=== PATIENT | male | born 1940 | race Caucasian/White ===

== ENCOUNTER 2021-11-07 10:07 | Inpatient (IN) | payer MEDICARE, BC ==
[2021-11-07] MEDS ORDERED: IBUPROFEN 600 MG TAB PO STA (10:12)
[2021-11-07] MEDS ORDERED: ACETAMINOPHEN TAB 500 MG TAB PO STA (10:12)
--- NOTE | 2021-11-07 10:16 | ED ---
General Adult HPI - General Stated complaint: Leg weakness Time Seen by Provider: 11/07/21 10:10 Source: patient, RN notes reviewed, old records reviewed - History of Present Illness Initial comments: This is an 81-year-old male who states about a week ago he was diagnosed with COVID. Patient states he got up today and his legs were really weak and he was having difficulty standing thought he might fall so he came to the emergency department. Patient states he did not take any of his morning medications. Patient states he did not take any Tylenol or Motrin. Patient states he has had a cough but no difficulty breathing or shortness of breath. Patient denies any chest pain or abdominal pain patient denies any headache patient denies any numbness or focal weakness. Patient denies any nausea vomiting or diarrhea. Ward lai denies any recent injury or trauma. - Related Data Home Medications Medication Instructions Recorded Confirmed Glimepiride [Amaryl] 2 mg PO AC-BRKFST 11/07/21 11/07/21 Lovastatin [Mevacor] 40 mg PO HS 11/07/21 11/07/21 lisinopriL 40 mg PO DAILY 11/07/21 11/07/21 metFORMIN HCL 1,000 mg PO AC-BID 11/07/21 11/07/21 Allergies Allergy/AdvReac Type Severity Reaction Status Date / Time No Known Allergies Allergy Verified 11/07/21 10:16 Review of Systems ROS Statement: Those systems with pertinent positive or pertinent negative responses have been documented in the HPI. ROS Other: All systems not noted in ROS Statement are negative. General Exam - General Exam Comments Initial Comments: GENERAL: Patient is well-developed and well-nourished. Patient is nontoxic and well-hydrated and is in mild distress. ENT: Neck is soft and supple. No significant lymphadenopathy is noted. Oropharynx is clear. Moist mucous membranes. Neck has full range of motion without eliciting any pain. EYES: The sclera were anicteric and conjunctiva were pink and moist. Extraocular movements were intact and pupils were equal round and reactive to light. Eyelids were unremarkable. PULMONARY: Unlabored respirations. Good breath sounds bilaterally. No audible rales rhonchi or wheezing was noted. CARDIOVASCULAR: There is a regular rate and rhythm without any murmurs gallops or rubs. ABDOMEN: Soft and nontender with normal bowel sounds. SKIN: Skin is clear with no lesions or rashes and otherwise unremarkable. NEUROLOGIC: Patient is alert and oriented x3. Cranial nerves II through XII are grossly intact. Motor and sensory are also intact. Normal speech, volume and content. Symmetrical smile. MUSCULOSKELETAL: Normal extremities with adequate strength and full range of motion. LYMPHATICS: No significant lymphadenopathy is noted PSYCHIATRIC: Normal psychiatric evaluation. Course Vital Signs 11/07/21 11/07/21 11/07/21 10:10 11:49 13:05 Temperature 101.0 F H 98.4 F Pulse Rate 114 H 88 Respiratory 22 22 16 Rate Blood Pressure 193/98 141/67 O2 Sat by Pulse 97 96 Oximetry Medical Decision Making - Medical Decision Making EKG shows sinus tachycardia with an occasional PAC at a rate of [address] interval is 131 QRS is 90 QT interval 300 QTC is 365. Patient's EKG shows no ST segment elevation or depression. Chest x-ray shows no acute abnormality. Patient was unable to stand even with assistance because of generalized weakness. I spoke with sounds physicians and they accepted the patient I admitted the patient wrote admitting orders. - Lab Data Result diagrams: 11/07/21 10:53 11/07/21 10:53 Lab Results 11/07/21 11/07/21 11/07/21 Range/Units 10:52 10:53 10:53 WBC 11.5 H (3.8-10.6) k/uL RBC 4.81 (4.30-5.90) m/uL Hgb 15.3 (13.0-17.5) gm/dL Hct 42.1 (39.0-53.0) % MCV 87.6 (80.0-100.0) fL MCH 31.8 (25.0-35.0) pg MCHC 36.3 (31.0-37.0) g/dL RDW 13.6 (11.5-15.5) % Plt Count 398 (150-450) k/uL MPV 8.8 Neutrophils % (Manual) 63 % Band Neuts % (Manual) 1 % Lymphocytes % (Manual) 12 % Monocytes % (Manual) 22 % Basophils % (Manual) 2 % Neutrophils # (Manual) 7.30 (1.3-7.7) k/uL Lymphocytes # (Manual) 1.38 (1.0-4.8) k/uL Monocytes # (Manual) 2.53 H (0-1.0) k/uL Basophils # (Manual) 0.23 H (0-0.2) k/uL Nucleated RBCs 0 (0-0) /100 WBC Manual Slide Review Performed Sodium 133 L (137-145) mmol/L Potassium 4.9 (3.5-5.1) mmol/L Chloride 97 L (98-107) mmol/L Carbon Dioxide 20 L (22-30) mmol/L Anion Gap 16 mmol/L BUN 17 (9-20) mg/dL Creatinine 1.21 (0.66-1.25) mg/dL Est GFR (CKD-EPI)AfAm 64 (>60 ml/min/1.73 sqM) Est GFR (CKD-EPI)NonAf 55 (>60 ml/min/1.73 sqM) Glucose 157 H (74-99) mg/dL Lactic Ac Sepsis Rflx Plasma Lactic Acid Joni (0.7-2.0) mmol/L Calcium 9.0 (8.4-10.2) mg/dL Total Bilirubin 0.6 (0.2-1.3) mg/dL AST 52 (17-59) U/L ALT 28 (4-49) U/L Alkaline Phosphatase 54 (38-126) U/L Total Protein 7.6 (6.3-8.2) g/dL Albumin 4.3 (3.5-5.0) g/dL Urine Color Urine Appearance (Clear) Urine pH (5.0-8.0) Ur Specific [place] (1.001-1.035) Urine Protein (Negative) Urine Glucose (UA) (Negative) Urine Ketones (Negative) Urine Blood (Negative) Urine Nitrite (Negative) Urine Bilirubin (Negative) Urine Urobilinogen (<2.0) mg/dL Ur Leukocyte Esterase (Negative) Urine RBC (0-5) /hpf Urine WBC (0-5) /hpf Ur Squamous Epith Cells (0-4) /hpf Urine Bacteria (None) /hpf Hyaline Casts (0-2) /lpf Urine Mucus (None) /hpf Coronavirus (PCR) Detected A (Not Detectd) 11/07/21 11/07/21 11/07/21 Range/Units 10:53 11:18 12:33 WBC (3.8-10.6) k/uL RBC (4.30-5.90) m/uL Hgb (13.0-17.5) gm/dL Hct (39.0-53.0) % MCV (80.0-100.0) fL MCH (25.0-35.0) pg MCHC (31.0-37.0) g/dL RDW (11.5-15.5) % Plt Count (150-450) k/uL MPV Neutrophils % (Manual) % Band Neuts % (Manual) % Lymphocytes % (Manual) % Monocytes % (Manual) % Basophils % (Manual) % Neutrophils # (Manual) (1.3-7.7) k/uL Lymphocytes # (Manual) (1.0-4.8) k/uL Monocytes # (Manual) (0-1.0) k/uL Basophils # (Manual) (0-0.2) k/uL Nucleated RBCs (0-0) /100 WBC Manual Slide Review Sodium (137-145) mmol/L Potassium (3.5-5.1) mmol/L Chloride (98-107) mmol/L Carbon Dioxide (22-30) mmol/L Anion Gap mmol/L BUN (9-20) mg/dL Creatinine (0.66-1.25) mg/dL Est GFR (CKD-EPI)AfAm (>60 ml/min/1.73 sqM) Est GFR (CKD-EPI)NonAf (>60 ml/min/1.73 sqM) Glucose (74-99) mg/dL Lactic Ac Sepsis Rflx Y Plasma Lactic Acid Joni 2.1 H* (0.7-2.0) mmol/L Calcium (8.4-10.2) mg/dL Total Bilirubin (0.2-1.3) mg/dL AST (17-59) U/L ALT (4-49) U/L Alkaline Phosphatase (38-126) U/L Total Protein (6.3-8.2) g/dL Albumin (3.5-5.0) g/dL Urine Color Yellow Urine Appearance Clear (Clear) Urine pH 5.5 (5.0-8.0) Ur Specific [place] 1.017 (1.001-1.035) Urine Protein 1+ H (Negative) Urine Glucose (UA) Negative (Negative) Urine Ketones 1+ H (Negative) Urine Blood Trace H (Negative) Urine Nitrite Negative (Negative) Urine Bilirubin Negative (Negative) Urine Urobilinogen <2.0 (<2.0) mg/dL Ur Leukocyte Esterase Negative (Negative) Urine RBC <1 (0-5) /hpf Urine WBC 1 (0-5) /hpf Ur Squamous Epith Cells 1 (0-4) /hpf Urine Bacteria Rare H (None) /hpf Hyaline Casts 4 H (0-2) /lpf Urine Mucus Rare H (None) /hpf Coronavirus (PCR) (Not Detectd) Disposition Clinical Impression: Generalized weakness, COVID-19 Disposition: ADMITTED IP TO THIS HOSP Referrals: None,Stated [Primary Care Provider] - 1-2 days Time of Disposition: 14:03
[2021-11-07] MEDS ORDERED: hydrALAZINE HCL 20 MG/ML 1 ML VIAL IVP STA (10:41)
[2021-11-07] MEDS ORDERED: lisinopriL 20 MG TAB PO STA (10:41)
[2021-11-07 11:03] LABS: HCT 42.1 % (39.0-53.0); HGB 15.3 gm/dL (13.0-17.5); MCH 31.8 pg (25.0-35.0); MCHC 36.3 g/dL (31.0-37.0); MCV 87.6 fL (80.0-100.0); Mean Platelet Volume 8.8; Platelet Count 398 k/uL (150-450); RBC 4.81 m/uL (4.30-5.90); RDW 13.6 % (11.5-15.5); WBC 11.5 k/uL (3.8-10.6)
[2021-11-07 11:06] LABS: Albumin 4.3 g/dL (3.5-5.0); Potassium 4.9 mmol/L (3.5-5.1); Total Bilirubin 0.6 mg/dL (0.2-1.3); Total Protein 7.6 g/dL (6.3-8.2)
[2021-11-07] MEDS: SODIUM CHLORIDE 0.9% 500 ML 500 ML IV SCH ×2 (11:19→11:51)
[2021-11-07 11:30] LABS: Band Neutrophils % 1 %; Basophils # (M) 0.23 k/uL (0-0.2); Lymphocytes # (M) 1.38 k/uL (1.0-4.8); Monocytes # (M) 2.53 k/uL (0-1.0); Neutrophils % (M) 63 %; Nucleated Red Blood Cells 0 /100 WBC (0-0); Total Cells Counted 100
--- NOTE | 2021-11-07 11:47 | XR ---
EXAMINATION TYPE: XR chest 2V DATE OF EXAM: 11/07/2021 11:38 AM COMPARISON: None TECHNIQUE: XR chest 2V Frontal and lateral views of the chest. CLINICAL INDICATION:Male, 81 years old with history of Fever; FINDINGS: Lungs/Pleura: There is no evidence of pleural effusion, focal consolidation, or pneumothorax. Pulmonary vascularity: Unremarkable. Heart/mediastinum: Cardiomediastinal silhouette is unremarkable. Atherosclerotic calcifications are seen in the aorta. Musculoskeletal: No acute osseous pathology. IMPRESSION: No acute cardiopulmonary disease/process.
[2021-11-07 12:56] LABS: Appearance,Urine Clear (Clear); Bacteria,Urine Rare /hpf; Bilirubin,Urine Negative (Negative); Blood,Urine Trace (Negative); Color,Urine Yellow; Glucose,Urine (UA) Negative (Negative); Hyaline Casts,Urine 4 /lpf (0-2); Ketones,Urine 1+ (Negative); Leukocyte Esterase,Urine Negative (Negative); Mucus,Urine Rare /hpf; Nitrite,Urine Negative (Negative); PH, Urine 5.5 (5.0-8.0); Protein,Urine 1+ (Negative); RBC,Urine <1 /hpf (0-5); Specific Gravity,Urine 1.017 (1.001-1.035); Squamous Epithelial Cell,Urine 1 /hpf (0-4); Urobilinogen,Urine <2.0 mg/dL (<2.0); WBC,Urine 1 /hpf (0-5)
[2021-11-07] MEDS ORDERED: SODIUM CHLORIDE 0.9% 1,000 ML IV ONE (14:33)
[2021-11-07] MEDS ORDERED: DEXTROSE 50% SYRINGE 50 ML IVP PRN ×2 (16:45)
--- NOTE | 2021-11-07 16:48 | P.HPIM ---
History of Present Illness H&P Date: 11/07/21 Chief Complaint: Generalized weakness Patient is a 80-year-old male with a past medical history of diabetes hypertension hyperlipidemia who states that he was diagnosed with COVID-19 about a week ago and he has been having weakness since then. Patient is denying any cough, shortness of breath fever chills nausea vomiting or diarrhea. In the ED the adjunct nursing faculty attempted to walk him however they were not able to get him up. So he was referred for admission. Review of Systems 10 ROS reviewed and are negative except as noted in HPI Past Medical History Past Medical History: Diabetes Mellitus, Hyperlipidemia, Hypertension History of Any Multi-Drug Resistant Organisms: None Reported Past Surgical History: Orthopedic Surgery Additional Past Surgical History / Comment(s): splenectomy Past Psychological History: No Psychological Hx Reported Smoking Status: Never smoker Past Alcohol Use History: Daily Past Drug Use History: None Reported Medications and Allergies Home Medications Medication Instructions Recorded Confirmed Type Glimepiride [Amaryl] 2 mg PO AC-BRKFST 11/07/21 11/07/21 History Lovastatin [Mevacor] 40 mg PO HS 11/07/21 11/07/21 History lisinopriL 40 mg PO DAILY 11/07/21 11/07/21 History metFORMIN HCL 1,000 mg PO AC-BID 11/07/21 11/07/21 History Allergies Allergy/AdvReac Type Severity Reaction Status Date / Time No Known Allergies Allergy Verified 11/07/21 10:16 Physical Exam Osteopathic Statement: *. No significant issues noted on an osteopathic structural exam other than those noted in the History and Physical/Consult. Vitals: Vital Signs Temp Pulse Resp BP Pulse Ox 11/07/21 13:05 98.4 F 88 16 141/67 96 11/07/21 11:49 22 11/07/21 10:10 101.0 F H 114 H 22 193/98 97 Intake and Output 11/07/21 11/07/21 11/07/21 06:59 14:59 22:59 Other: Weight 65.771 kg General: [Alert and oriented, well nourished, no acute distress]. Eye: [PERRL, EOMI, normal conjunctiva]. HENT: [Normocephalic, clear tympanic membranes, normal hearing, moist oral mucosa, no scleral icterus, no sinus tenderness]. Neck: [Supple, non-tender, no carotid bruits, no JVD, no lymphadenopathy]. Lungs: [Clear to auscultation and percussion, non-labored respiration]. Heart: [Normal rate, regular rhythm, no murmur, gallop or edema]. Abdomen: [Soft, non-tender, non-distended, normal bowel sounds, no masses]. Musculoskeletal: [Normal range of motion and strength, no tenderness or swelling]. Skin: [Skin is warm, dry and pink, no rashes or lesions]. Neurologic: [Awake, alert, and oriented X3, CN II-XII intact]. Psychiatric: [Cooperative, appropriate mood and affect]. Results CBC & Chem 7: 11/07/21 10:53 11/07/21 10:53 Labs: Abnormal Lab Results - Last 24 Hours (Table) 11/07/21 11/07/21 11/07/21 Range/Units 10:52 10:53 10:53 WBC 11.5 H (3.8-10.6) k/uL Monocytes # (Manual) 2.53 H (0-1.0) k/uL Basophils # (Manual) 0.23 H (0-0.2) k/uL Sodium 133 L (137-145) mmol/L Chloride 97 L (98-107) mmol/L Carbon Dioxide 20 L (22-30) mmol/L Glucose 157 H (74-99) mg/dL Plasma Lactic Acid Joni (0.7-2.0) mmol/L Urine Protein (Negative) Urine Ketones (Negative) Urine Blood (Negative) Urine Bacteria (None) /hpf Hyaline Casts (0-2) /lpf Urine Mucus (None) /hpf Coronavirus (PCR) Detected A (Not Detectd) 11/07/21 11/07/21 Range/Units 10:53 12:33 WBC (3.8-10.6) k/uL Monocytes # (Manual) (0-1.0) k/uL Basophils # (Manual) (0-0.2) k/uL Sodium (137-145) mmol/L Chloride (98-107) mmol/L Carbon Dioxide (22-30) mmol/L Glucose (74-99) mg/dL Plasma Lactic Acid Joni 2.1 H* (0.7-2.0) mmol/L Urine Protein 1+ H (Negative) Urine Ketones 1+ H (Negative) Urine Blood Trace H (Negative) Urine Bacteria Rare H (None) /hpf Hyaline Casts 4 H (0-2) /lpf Urine Mucus Rare H (None) /hpf Coronavirus (PCR) (Not Detectd) Assessment and Plan Assessment: Generalized weakness secondary to COVID-19 PT OT consult UA negative for UTI Resume gentle fluids Blood cultures done in the ED will need to be followed up COVID-19 Patient is asymptomatic so no need to treat Diabetes mellitus Oral oral hypoglycemics and was start him on insulin regimen Hypertension Resume home BP meds Hyperlipidemia Resume Statin DVT prophylaxis: Subcu heparin
[2021-11-07 17:15] LABS: Glucose,Whole Blood 137 mg/dL (70-110)
[2021-11-07] MEDS: INSULIN ASPART (NovoLOG) 100 UNIT/ML VIAL SQ SCH ×2 (17:34)
[2021-11-07] MEDS: INSULIN DETEMIR (LEVEMIR) 100 UNIT/ML SYR SQ SCH (23:16)
[2021-11-07] MEDS: HEPARIN SODIUM,PORCINE/PF 5,000 UNIT/0.5 ML SYRINGE SQ SCH (23:17)
[2021-11-07] MEDS: ATORVASTATIN 10 MG TAB PO SCH (23:17)
[2021-11-08] MEDS: lisinopriL 20 MG TAB PO SCH (06:31)
[2021-11-08 07:47] LABS: Glucose,Whole Blood 146 mg/dL (70-110)
[2021-11-08] MEDS: INSULIN ASPART (NovoLOG) 100 UNIT/ML VIAL SQ SCH ×6 (09:58→17:31)
[2021-11-08] MEDS: HEPARIN SODIUM,PORCINE/PF 5,000 UNIT/0.5 ML SYRINGE SQ SCH ×2 (10:01→21:06)
[2021-11-08] MEDS: INSULIN DETEMIR (LEVEMIR) 100 UNIT/ML SYR SQ SCH ×2 (10:01→20:54)
[2021-11-08 12:07] LABS: Glucose,Whole Blood 113 mg/dL (70-110)
--- NOTE | 2021-11-08 13:57 | P.PN ---
Subjective Progress Note Date: 11/08/21 Patient this morning was standing up and looking for his cell phone. I told patient that he should not get out of bed without assistance. I told nurse that he needs to have a fall alarm. Objective - Vital Signs Vital signs: Vital Signs Temp 98.0 F 11/08/21 06:16 Pulse 107 H 11/08/21 06:16 Resp 19 11/08/21 06:16 BP 178/83 11/08/21 06:16 Pulse Ox 95 11/08/21 06:16 FiO2 Intake & Output 11/07/21 11/08/21 11/08/21 18:59 06:59 18:59 Output Total 500 Balance -500 Weight 65.771 kg 65.771 kg Output: Urine 500 Other: Voiding Method Toilet Urinal - Exam General examination - Alert and Oriented 3 in NAD, appears chronically debilitated Heart - + S1S2 no murmurs Lungs - Clear to auscultation Abdomen soft NT ND +ve BS Extremities - No edema AIR BRAKE TESTER - Moving all 4 extremities spontaneously Psych - Calm and cooperative - Labs CBC & Chem 7: 11/07/21 10:53 11/07/21 10:53 Labs: Abnormal Lab Results - Last 24 Hours (Table) 11/07/21 11/08/21 11/08/21 Range/Units 17:13 07:45 12:04 POC Glucose (mg/dL) 137 H 146 H 113 H (70-110) mg/dL Microbiology - Last 24 Hours (Table) 11/07/21 10:53 Blood Culture - Preliminary Blood No Growth after 24 hours 11/07/21 10:53 Blood Culture - Preliminary Blood No Growth after 24 hours Assessment and Plan Assessment: Generalized weakness secondary to COVID-19 PT OT consult UA negative for UTI Resume gentle fluids Blood cultures done in the ED will need to be followed up COVID-19 Patient is asymptomatic so no need to treat Diabetes mellitus Oral oral hypoglycemics and was start him on insulin regimen Hypertension Resume home BP meds Hyperlipidemia Resume Statin DVT prophylaxis: Subcu heparin
[2021-11-08 17:01] LABS: Glucose,Whole Blood 155 mg/dL (70-110)
[2021-11-08 20:53] LABS: Glucose,Whole Blood 103 mg/dL (70-110)
[2021-11-08] MEDS: ATORVASTATIN 10 MG TAB PO SCH (21:06)
[2021-11-09 07:16] LABS: Glucose,Whole Blood 197 mg/dL (70-110)
[2021-11-09] MEDS: HEPARIN SODIUM,PORCINE/PF 5,000 UNIT/0.5 ML SYRINGE SQ SCH ×2 (08:58→20:41)
[2021-11-09] MEDS: INSULIN ASPART (NovoLOG) 100 UNIT/ML VIAL SQ SCH ×6 (08:59→17:43)
[2021-11-09] MEDS: lisinopriL 20 MG TAB PO SCH (08:59)
[2021-11-09] MEDS: INSULIN DETEMIR (LEVEMIR) 100 UNIT/ML SYR SQ SCH ×2 (08:59→20:41)
--- NOTE | 2021-11-09 10:53 | P.PN ---
Subjective Progress Note Date: 11/09/21 Patient denies any acute complaints. Patient says that he'll like to be left alone so that he can sleep. Objective - Vital Signs Vital signs: Vital Signs Temp 98.3 F 11/09/21 05:35 Pulse 96 11/09/21 05:35 Resp 18 11/09/21 05:35 BP 158/63 11/09/21 05:35 Pulse Ox 94 L 11/09/21 07:26 FiO2 Intake & Output 11/08/21 11/09/21 11/09/21 18:59 06:59 18:59 Other: Voiding Method Toilet Urinal Incontinent # Voids 2 2 - Exam General examination - Alert and Oriented 3 in NAD, appears chronically debilitated Heart - + S1S2 no murmurs Lungs - Clear to auscultation Abdomen soft NT ND +ve BS Extremities - No edema TUBE FILLER - Moving all 4 extremities spontaneously Psych - Calm and cooperative - Labs CBC & Chem 7: 11/07/21 10:53 11/07/21 10:53 Labs: Abnormal Lab Results - Last 24 Hours (Table) 11/08/21 11/08/21 11/09/21 Range/Units 12:04 17:00 07:14 POC Glucose (mg/dL) 113 H 155 H 197 H (70-110) mg/dL Microbiology - Last 24 Hours (Table) 11/07/21 10:53 Blood Culture - Preliminary Blood No Growth after 24 hours 11/07/21 10:53 Blood Culture - Preliminary Blood No Growth after 24 hours Assessment and Plan Assessment: Generalized weakness secondary to COVID-19 PT OT consult UA negative for UTI Cultures done in the ED are negative to date COVID-19 Patient is asymptomatic so no need to treat Diabetes mellitus Oral oral hypoglycemics and was start him on insulin regimen Hypertension Resume home BP meds Hyperlipidemia Resume Statin DVT prophylaxis: Subcu heparin
[2021-11-09 12:23] LABS: Glucose,Whole Blood 189 mg/dL (70-110)
[2021-11-09] MEDS: ACETAMINOPHEN TAB 325 MG TAB PO PRN (12:23)
[2021-11-09 16:57] LABS: Glucose,Whole Blood 218 mg/dL (70-110)
[2021-11-09 19:50] LABS: Glucose,Whole Blood 215 mg/dL (70-110)
[2021-11-09] MEDS: ATORVASTATIN 10 MG TAB PO SCH (20:41)
[2021-11-10 02:02] LABS: Basophils # (A) 0.1 k/uL (0-0.2); Basophils % (A) 1 %; Eosinophils # (A) 0.1 k/uL (0-0.7); Eosinophils % (A) 1 %; HCT 34.4 % (39.0-53.0); HGB 11.8 gm/dL (13.0-17.5); Lymphocytes # (A) 3.3 k/uL (1.0-4.8); Lymphocytes % (A) 30 %; MCH 31.3 pg (25.0-35.0); MCHC 34.3 g/dL (31.0-37.0); MCV 91.4 fL (80.0-100.0); Mean Platelet Volume 8.8; Monocytes % (A) 9 %; Neutrophils # (A) 6.1 k/uL (1.3-7.7); Neutrophils % (A) 56 %; Platelet Count 377 k/uL (150-450); RBC 3.77 m/uL (4.30-5.90); RDW 13.6 % (11.5-15.5)
[2021-11-10 06:58] LABS: Glucose,Whole Blood 191 mg/dL (70-110)
[2021-11-10] MEDS: INSULIN ASPART (NovoLOG) 100 UNIT/ML VIAL SQ SCH ×6 (07:32→17:20)
[2021-11-10] MEDS: INSULIN DETEMIR (LEVEMIR) 100 UNIT/ML SYR SQ SCH ×2 (07:32→21:01)
[2021-11-10] MEDS: lisinopriL 20 MG TAB PO SCH (07:32)
--- NOTE | 2021-11-10 10:19 | P.CONS ---
History of Present Illness - Reason for Consult Consult date: 11/10/21 GI bleed Requesting physician: Nba Valenzuela - Chief Complaint Weakness - History of Present Illness This is a pleasant 81-year-old male who presented to the emergency department [place] with complaints of weakness, weakness in his legs who was recently diagnosed with COVID-19 infection approximately one week ago. He has a past medical history of diabetes mellitus, hyperlipidemia. hypertension, and splenectomy. He has a daily drinker. Apparently yesterday evening he got up to go to the bathroom and had a large maroon-colored/tarry stool. Gastroenterology was consulted for GI bleed. Patient denies any previous history of GI bleed, no previous EGD or colonoscopy. He is denying any abdominal pain, cramping, nausea or vomiting. He is not on any NSAIDs or anticoagulation. He does take low-dose daily aspirin. On admission he had a hemoglobin of 15.3 with a dropped to 11.8 today. Labs: WBC 11.0 hemoglobin 11.8 hematocrit 34 platelet count 377,000 total biliru bin 0.6 AST 52 AST 28 alkaline phosphatase 54 Review of Systems REVIEW OF SYSTEMS: CARDIOPULMONARY: No chest pain or shortness of breath. Has cough. Gastrointestinal: No abdominal pain, epigastric pain, abdominal cramping. No nausea or vomiting. No hematemesis, coffee-ground emesis. Maroon and dark tarry stool x1. GENITOURINARY: No dysuria or hematuria. MUSCULOSKELETAL: Reports normal range of motion. SKIN: No rashes. No jaundice. ENDOCRINE: No chills, fevers. No excessive weight gain or loss. No polydipsia or polyuria. PSYCHIATRIC: Unremarkable. NEUROLOGY: No change in mental status. Denies dizziness, headache. ENT: Vision unremarkable. CONSTITUTIONAL: Increased weakness, fatigue, Covid 19 infection Past Medical History Past Medical History: Cancer, Diabetes Mellitus, Hyperlipidemia, Hypertension Additional Past Medical History / Comment(s): Prostate cancer 20 years ago History of Any Multi-Drug Resistant Organisms: None Reported Past Surgical History: Orthopedic Surgery Additional Past Surgical History / Comment(s): splenectomy, Left finger joint OA surgery Past Anesthesia/Blood Transfusion Reactions: No Reported Reaction Past Psychological History: Anxiety, Depression Smoking Status: Never smoker Past Alcohol Use History: Daily Past Drug Use History: None Reported Medications and Allergies Home Medications Medication Instructions Recorded Confirmed Type Glimepiride [Amaryl] 2 mg PO AC-BRKFST 11/07/21 11/07/21 History Lovastatin [Mevacor] 40 mg PO HS 11/07/21 11/07/21 History lisinopriL 40 mg PO DAILY 11/07/21 11/07/21 History metFORMIN HCL 1,000 mg PO AC-BID 11/07/21 11/07/21 History Allergies Allergy/AdvReac Type Severity Reaction Status Date / Time No Known Allergies Allergy Verified 11/07/21 10:16 Physical Exam Vitals: Vital Signs Temp Pulse Resp BP Pulse Ox 11/10/21 05:41 98.4 F 101 H 17 115/70 97 11/10/21 01:00 98.0 F 113 H 19 134/71 96 11/09/21 22:00 98.5 F 98 19 108/67 93 L 11/09/21 20:00 103 H 16 11/09/21 18:00 98.4 F 103 H 16 114/54 95 11/09/21 14:45 97.5 F L 77 18 92/53 98 11/09/21 11:30 100.6 F H 96 16 135/74 94 L Intake and Output 11/09/21 11/10/21 11/10/21 22:59 06:59 14:59 Output Total 250 Balance -250 Output: Urine 250 Other: Voiding Method Toilet Urinal Incontinent # Voids 3 2 # Bowel Movements 3 1 General appearance: The patient is alert, oriented, appears in no acute distress. HET: Head is normocephalic and atraumatic. Conjunctiva pink. Sclera anicteric. Neck: Supple without lymphadenopathy. Trachea midline. Heart: S1 S2. Regular rate and rhythm. Lungs: Clear to auscultation. Abdomen: Soft, nontender, nondistended with bowel sounds. No guarding or rigidity. Skin: No rashes. No jaundice. Extremities: Normal skin color and turgor. No pedal edema. Neurological: No focal deficits. Alert and oriented x3. Results CBC & Chem 7: 11/10/21 07:06 11/10/21 07:06 Labs: Abnormal Lab Results - Last 24 Hours (Table) 11/09/21 11/09/21 11/09/21 Range/Units 12:19 16:55 19:49 WBC (3.8-10.6) k/uL RBC (4.30-5.90) m/uL Hgb (13.0-17.5) gm/dL Hct (39.0-53.0) % POC Glucose (mg/dL) 189 H 218 H 215 H (70-110) mg/dL 11/10/21 11/10/21 Range/Units 01:40 06:55 WBC 11.0 H (3.8-10.6) k/uL RBC 3.77 L (4.30-5.90) m/uL Hgb 11.8 L D (13.0-17.5) gm/dL Hct 34.4 L (39.0-53.0) % POC Glucose (mg/dL) 191 H (70-110) mg/dL Microbiology - Last 24 Hours (Table) 11/07/21 10:53 Blood Culture - Preliminary Blood No Growth after 48 hours 11/07/21 10:53 Blood Culture - Preliminary Blood No Growth after 48 hours Assessment and Plan (1) Melena Narrative/Plan: 81-year-old who was admitted for COVID-19 infection with complaints of weakness and fatigue. Apparently patient had a large bowel movement last evening that was maroon in color, and black and tarry. Had a 4 g drop in his hemoglobin from admission 3 days ago at 15-11. No previous history of GI bleed, no NSAID or anticoagulation use. No prior EGD or colonoscopy. Unclear etiology at this time of GI blood loss. However with BUN elevated, likely upper GI source of blood loss. Recommend proceeding with EGD, patient initially declined, but is now agreeable to do upper endoscopy. Current Visit: Yes Status: Acute Code(s): K92.1 - MELENA SNOMED Code(s): 5323661 (2) COVID-19 Current Visit: Yes Status: Acute Code(s): U07.1 - COVID-19 SNOMED Code(s): 283907892 (3) Generalized weakness Current Visit: Yes Status: Acute Code(s): R53.1 - WEAKNESS SNOMED Code(s): 72222291 Plan: 1. Continue symptomatic and supportive care 2. Daily CBC, transfuse for hemoglobin less than 7 3. Avoid NSAIDs or anticoagulation 4. Order basic metabolic panel 5. NPO after midnight 6. Protonix 40 mg twice a day for GI prophylaxis 7. Recommend EGD tomorrow Thank you for this consultation, we will continue to follow. Dr. Yann Camp I agree with the dictator's note, documented as a scribe by Jenniffer Escalante.
[2021-11-10 10:40] LABS: HCT 32.6 % (39.6-50.0); HGB 11.2 g/dL (13.0-17.0); MCH 31.5 pg (27.0-32.0); MCHC 34.4 g/dL (32.0-37.0); MCV 91.8 fL (80.0-97.0); Mean Platelet Volume 10.8 fL (9.5-12.2); NRBC Per 100 WBC 0.5 /100 WBCS (0.0-0.0); Platelet Count 369 X 10*3/uL (140-440); RBC 3.55 X 10*6/uL (4.40-5.60); RDW 13.2 % (11.5-14.5); WBC 12.38 X 10*3/uL (4.50-10.00)
[2021-11-10 10:45] LABS: African American GFR (CKD) 62 (>60 ml/min/1.73 sqM); Anion Gap 11 mmol/L; Blood Urea Nitrogen 64 mg/dL (9-20); Calcium 8.7 mg/dL (8.4-10.2); Carbon Dioxide 22 mmol/L (22-30); Chloride 109 mmol/L (98-107); Glucose 182 mg/dL (74-99); Non-African American GFR(CKD) 53 (>60 ml/min/1.73 sqM); Potassium 4.8 mmol/L (3.5-5.1); Sodium 142 mmol/L (137-145)
[2021-11-10 11:52] LABS: Glucose,Whole Blood 265 mg/dL (70-110)
--- NOTE | 2021-11-10 13:07 | P.PN ---
Subjective Progress Note Date: 11/10/21 Last night patient had a large maroon colored bowel movement. Pro-admission his hemoglobin dropped from 15-11. This morning hemoglobin is stable. Patient seen by GI this morning and is refusing EGD and colonoscopy. Patient states that he would like to go home. Objective - Vital Signs Vital signs: Vital Signs Temp 98.1 F 11/10/21 10:10 Pulse 101 H 11/10/21 10:10 Resp 17 11/10/21 10:10 BP 136/71 11/10/21 10:10 Pulse Ox 92 L 11/10/21 10:10 FiO2 Intake & Output 11/09/21 11/10/21 11/10/21 18:59 06:59 18:59 Intake Total 300 Output Total 250 Balance -250 300 Intake: Oral 300 Output: Urine 250 Other: Voiding Method Toilet Toilet Urinal Urinal Incontinent Incontinent # Voids 3 2 # Bowel Movements 3 1 1 - Exam General examination - Alert and Oriented 3 in NAD, appears chronically tej litated Heart - + S1S2 no murmurs Lungs - Clear to auscultation Abdomen soft NT ND +ve BS Extremities - No edema 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 Psych - Calm and cooperative - Labs CBC & Chem 7: 11/10/21 07:06 11/10/21 07:06 Labs: Abnormal Lab Results - Last 24 Hours (Table) 11/09/21 11/09/21 11/10/21 Range/Units 16:55 19:49 01:40 WBC 11.0 H (3.8-10.6) k/uL RBC 3.77 L (4.30-5.90) m/uL Hgb 11.8 L D (13.0-17.5) gm/dL Hct 34.4 L (39.0-53.0) % Absolute Nucleated RBC (0.00-0.00) X 10*3/uL NRBC/100 WBC Diff (0.0-0.0) /100 WBCS Chloride (98-107) mmol/L BUN (9-20) mg/dL Glucose (74-99) mg/dL POC Glucose (mg/dL) 218 H 215 H (70-110) mg/dL 11/10/21 11/10/21 11/10/21 Range/Units 06:55 07:06 07:06 WBC 12.38 H (3.8-10.6) k/uL RBC 3.55 L (4.30-5.90) m/uL Hgb 11.2 L (13.0-17.5) gm/dL Hct 32.6 L (39.0-53.0) % Absolute Nucleated RBC 0.06 H (0.00-0.00) X 10*3/uL NRBC/100 WBC Diff 0.5 H (0.0-0.0) /100 WBCS Chloride 109 H (98-107) mmol/L BUN 64 H (9-20) mg/dL Glucose 182 H (74-99) mg/dL POC Glucose (mg/dL) 191 H (70-110) mg/dL 11/10/21 Range/Units 11:50 WBC (3.8-10.6) k/uL RBC (4.30-5.90) m/uL Hgb (13.0-17.5) gm/dL Hct (39.0-53.0) % Absolute Nucleated RBC (0.00-0.00) X 10*3/uL NRBC/100 WBC Diff (0.0-0.0) /100 WBCS Chloride (98-107) mmol/L BUN (9-20) mg/dL Glucose (74-99) mg/dL POC Glucose (mg/dL) 265 H (70-110) mg/dL Microbiology - Last 24 Hours (Table) 11/07/21 10:53 Blood Culture - Preliminary Blood No Growth after 72 hours 11/07/21 10:53 Blood Culture - Preliminary Blood No Growth after 48 hours Assessment and Plan Assessment: Generalized weakness secondary to COVID-19 PT OT consult UA negative for UTI Cultures done in the ED are negative to date Large maroon-colored bowel movement last night -Patient did have a hemoglobin dropped from 15-11 since admission. -Patient refused EGD and colonoscopy -We'll repeat hemoglobin this afternoon and if hemoglobin is stable we'll plan on discharging COVID-19 Patient is asymptomatic so no need to treat Diabetes mellitus Oral oral hypoglycemics and was start him on insulin regimen Hypertension Resume home BP meds Hyperlipidemia Resume Statin DVT prophylaxis: Subcu heparin
[2021-11-10 14:21] LABS: HCT 34.3 % (39.0-53.0); MCH 32.2 pg (25.0-35.0); MCV 92.1 fL (80.0-100.0); Platelet Count 400 k/uL (150-450); RBC 3.72 m/uL (4.30-5.90); RDW 13.6 % (11.5-15.5); WBC 10.1 k/uL (3.8-10.6)
[2021-11-10 16:45] LABS: Glucose,Whole Blood 297 mg/dL (70-110)
[2021-11-10] MEDS: PANTOPRAZOLE 40 MG TABLET PO SCH (17:20)
[2021-11-10] MEDS: ATORVASTATIN 10 MG TAB PO SCH (21:01)
[2021-11-10 21:31] LABS: Glucose,Whole Blood 151 mg/dL (70-110)
[2021-11-11 07:29] LABS: Glucose,Whole Blood 128 mg/dL (70-110)
[2021-11-11] MEDS: INSULIN ASPART (NovoLOG) 100 UNIT/ML VIAL SQ SCH ×5 (08:43→17:02)
[2021-11-11] MEDS: PANTOPRAZOLE 40 MG TABLET PO SCH ×2 (09:15→17:02)
[2021-11-11] MEDS: INSULIN DETEMIR (LEVEMIR) 100 UNIT/ML SYR SQ SCH ×2 (09:15→20:33)
[2021-11-11] MEDS: lisinopriL 20 MG TAB PO SCH (09:15)
[2021-11-11 10:58] LABS: HCT 28.3 % (39.6-50.0); HGB 9.9 g/dL (13.0-17.0); MCH 31.8 pg (27.0-32.0); Mean Platelet Volume 10.6 fL (9.5-12.2); NRBC Per 100 WBC 0.6 /100 WBCS (0.0-0.0); Platelet Count 408 X 10*3/uL (140-440); RBC 3.11 X 10*6/uL (4.40-5.60); RDW 13.3 % (11.5-14.5); WBC 11.55 X 10*3/uL (4.50-10.00)
[2021-11-11 11:33] LABS: Glucose,Whole Blood 168 mg/dL (70-110)
[2021-11-11] MEDS ORDERED: LIDOCAINE 2% INJ 20 MG/ML (2 ML VIAL) ONE (12:02)
[2021-11-11] MEDS ORDERED: PROPOFOL 10 MG/ML 20 ML VIAL IV ONE (12:02)
[2021-11-11] MEDS ORDERED: SODIUM CHLORIDE 0.9% 500 ML 500 ML IV ONE (12:05)
--- NOTE | 2021-11-11 12:17 | P.PCN ---
Date of Procedure: 11/11/21 Procedure(s) Performed: BRIEF HISTORY: Patient is a 81-year-old, pleasant, white male, admitted hospital with generalized weakness. He subsequently had maroon colored stool yesterday. He dropped hemoglobin hemoglobin from 15-9 g/dL. He scheduled for an upper endoscopy to evaluate for possible upper GI source of bleeding PROCEDURE PERFORMED: Esophagogastroduodenoscopy with biopsy. PREOPERATIVE DIAGNOSIS: Acute GI bleed. IV sedation per anesthesia. PROCEDURE: After informed consent was obtained, the patient was brought into the endoscopy unit. IV sedation was administered by Anesthesia under continuous monitoring. Initially the Olympus GIF-140 video endoscope was inserted into the mouth. Esophagus intubated without any difficulty. It was gradually advanced into the stomach and duodenum and carefully examined. The bulb of the duodenum had a 1.5 cm nonbleeding superficial ulcer and the second part of the duodenum appeared normal. The scope at this time was withdrawn to the stomach, adequately insufflated with air, and upon careful examination, mucosa of the antrum had at least 5 ulcerations measuring between 5 mm to 1.5 cm in size with no active bleeding. Biopsies were done from the margin of the ulcer. Mucosa of the, body, cardia and the fundus appeared normal. The scope was then withdrawn into the esophagus. Small hiatal hernia noted. The GE junction was located at 39 cm from the incisors. The esophagus appeared normal. There were no erosions or ulcerations seen and the patient tolerated the procedure well. IMPRESSION: 1. Multiple gastric ulcerations measuring between 5 mm to 1.5 cm in size in the antrum with no active bleeding status post biopsy. 2. 1.5 cm superficial duodenal bulbar ulcer with no active bleeding 3. Small hiatal hernia. RECOMMENDATIONS: The findings of this examination were discussed with the patient. He was advised to follow with the biopsy results. Continue with Protonix 40 mg twice daily and avoid NSAIDs..
[2021-11-11 16:50] LABS: Glucose,Whole Blood 171 mg/dL (70-110)
[2021-11-11 20:22] LABS: Glucose,Whole Blood 237 mg/dL (70-110)
[2021-11-11] MEDS: ATORVASTATIN 10 MG TAB PO SCH (20:33)
[2021-11-11 22:31] VITALS: RESP 17
[2021-11-12 05:24] VITALS: BP 142/48; PULSE 96; TEMP 100
[2021-11-12] MEDS: ACETAMINOPHEN TAB 325 MG TAB PO PRN (05:42)
[2021-11-12 07:20] LABS: Glucose,Whole Blood 170 mg/dL (70-110)
[2021-11-12] MEDS: INSULIN ASPART (NovoLOG) 100 UNIT/ML VIAL SQ SCH ×2 (08:29→08:30)
[2021-11-12] MEDS: PANTOPRAZOLE 40 MG TABLET PO SCH (08:30)
[2021-11-12] MEDS: INSULIN DETEMIR (LEVEMIR) 100 UNIT/ML SYR SQ SCH (08:30)
[2021-11-12] MEDS: lisinopriL 20 MG TAB PO SCH (08:30)
[2021-11-12] MEDS ORDERED: ZINC SULFATE 220 MG CAP PO SCH (09:45)
[2021-11-12 11:09] LABS: Glucose,Whole Blood 202 mg/dL (70-110)
[2021-11-12 14:44] LABS: HCT 28.2 % (39.6-50.0); HGB 9.5 g/dL (13.0-17.0); MCH 31.1 pg (27.0-32.0); MCHC 33.7 g/dL (32.0-37.0); MCV 92.5 fL (80.0-97.0); Mean Platelet Volume 10.7 fL (9.5-12.2); NRBC Per 100 WBC 0.5 /100 WBCS (0.0-0.0); Platelet Count 513 X 10*3/uL (140-440); RBC 3.05 X 10*6/uL (4.40-5.60); RDW 13.4 % (11.5-14.5)
[2021-11-12 16:04] LABS: African American GFR (CKD) 71.6 (60.0-200.0); Albumin 3.5 g/dL (3.8-4.9); Albumin/Globulin Ratio 1.35 (1.60-3.17); Anion Gap 11.9 mmol/L (10.00-18.00); BUN/Creat Ratio 29.45 Ratio (12.00-20.00); Blood Urea Nitrogen 32.4 mg/dL (9.0-27.0); Calcium 8.9 mg/dL (8.7-10.3); Carbon Dioxide 23.1 mmol/L (20.0-27.5); Globulin 2.6 g/dL (1.6-3.3); Non-African American GFR(CKD) 61.8 (60.0-200.0); Potassium 4.3 mmol/L (3.5-5.5); Total Bilirubin 0.4 mg/dL (0.30-1.20); Total Protein 6.1 g/dL (6.2-8.2)
[2021-11-12 17:20] LABS: Basophils # (A) 0.07 X 10*3/uL (0.00-0.10); Basophils % (A) 0.8 %; Eosinophils # (A) 0.24 X 10*3/uL (0.04-0.35); Eosinophils % (A) 2.6 %; Immature Grans, Automated 1.3 %; Lymphocytes # (A) 3.17 X 10*3/uL (0.90-5.00); Lymphocytes % (A) 34.5 %; Monocytes # (A) 1.65 X 10*3/uL (0.20-1.00); Monocytes % (A) 17.9 %; Neutrophils # (A) 3.95 X 10*3/uL (1.80-7.70); Neutrophils % (A) 42.9 %
[2021-11-12 17:21] LABS: Crenated RBC 2+
--- NOTE | 2021-11-14 08:29 | CDI ---
Documentation Clarification Form Date: 11/14/21 From: Liliana Robles Admit Date: 11/07/2021 02:07:00 PM Patient Name: Yadiel Fitch Visit Number: [id number] Discharge Date: 11/12/2021 12:22:00 PM ATTENTION: The Clinical Documentation Specialists (CDI) and [facility] Coding Staff appreciate your assistance in clarifying documentation. Please respond to the clarification below the line at the bottom and electronically sign. The CDI & [facility] Coding staff will review the response and follow-up if needed. Please note: Queries are made part of the Legal Health Record. If you have any questions, please contact the author of this message via ITS. Dr. Howie Kenney, Your patient has a hemoglobin/hematocrit level of 9.5/28.2 on 11/12. Please clarify if there is an additional diagnosis and/or clinical significance related to these lab values. History/Risk Factors: COVID-19 with weakness, HLD, HTN, hiatal hernia, T2DM, urinary continence Clinical indicators: Evening of 11/09 the patient had a large maroon-colored tarry stool. Treatment: EGD done on 11/10 - .Multiple gastric ulcerations measuring between 5 mm to 1.5 cm in size in the antrum with no active bleeding status post biopsy. 2. 1.5 cm superficial duodenal bulbar ulcer with no active bleeding. Is there an additional diagnosis and/or clinical significance related to the above lab result/information: [ ] Acute blood loss anemia [ ] Acute on chronic blood loss anemia [ ] Chronic blood loss anemia [ ] Unable to determine [ ] Other, please specify Acute blood loss anemia MTDD
--- NOTE | 2021-11-14 08:40 | CDI ---
Documentation Clarification Form Date: 11/14/21 From: Liliana Robles Admit Date: 11/07/2021 02:07:00 PM Patient Name: Yadiel Fitch Visit Number: [id number] Discharge Date: 11/12/2021 12:22:00 PM ATTENTION: The Clinical Documentation Specialists (CDI) and [facility] Coding Staff appreciate your assistance in clarifying documentation. Please respond to the clarification below the line at the bottom and electronically sign. The CDI & [facility] Coding staff will review the response and follow-up if needed. Please note: Queries are made part of the Legal Health Record. If you have any questions, please contact the author of this message via ITS. Dr. Howie Kenney, GI bleed is documented in the 11/10 consult. Additional clarification regarding the etiology of the GI bleed is requested. History/risk factors: COVID-19 with weakness, HLD, HTN, hiatal hernia, T2DM, urinary continence Clinical Indicators: Evening of 11/09 the patient had a large maroon-colored tarry stool. EGD/colonoscopy performed and findings: .Multiple gastric ulcerations measuring between 5 mm to 1.5 cm in size in the antrum with no active bleeding status post biopsy. 2. 1.5 cm superficial duodenal bulbar ulcer with no active bleeding. Labs: H/H (11/10-11/12): 11.8/34.4, 11.2/32.6, 12.0/34.3, 9.9/28.3 Treatment: EGD, Protonix po, CBC Please clarify the etiology of the GI bleed, if known: [ ] GIB due to gastric ulcer [ ] GIB due to duodenal ulcer [ ] GIB, etiology unknown [ ] Other, please specify [ ] Unable to determine GIB due to gastric ulcer MTDD
--- NOTE | 2021-11-14 12:33 | P.DS ---
Providers Date of admission: 11/07/21 14:07 Expected date of discharge: 11/12/21 Attending physician: Howie Kenney MD Consults: 11/10/21 02:21 Consult Physician Urgent Consulting Provider: Rosa Camp Consult Reason/Comments: GIB Do you want consulting provider notified?: Yes Primary care physician: Stated None Hospital Course: Final Diagnoses: Covid-19 infection Generalized weakness secondary to the above DM, A1c 6.1 HTN Hyperlipidemia Acute upper GI bleed, Melena,Status post EGD reporting multiple gastric ulcerations measuring between 5 mm to 1.5 cm in size in the antrum with no active bleeding status post biopsy, 1.5 cm superficial duodenal bulbar ulcer, no active bleeding and small hiatal hernia; Protonix 40 twice a day recommended in addition to avoiding NSAIDs. Acute renal failure, improving Hospital course: Patient was transitioned over to our care at this morning. Please refer to prior H&P, progress notes and consultation notes for specifics. Reports ambulating in room, tolerating exertion well. Denies chest pain, palpitations or shortness of breath. Denies lightheadedness, dizziness or focal deficits. Denies nausea vomiting or diarrhea. Denies abdominal pain. Denies rectal bleeding, dark or maroon stools. Patient will be discharged home later today pending labs/hemoglobin, in a stable condition with guarded prognosis.. Maintaining O2 sats in the high 90s on room air. The impression and plan of care has been dictated as directed. : I performed a history and examination of this patient, discussed the same with the dictator. I agree with the dictator's note ,documented as a scribe. Any additional findings or plans will be noted. Patient Condition at Discharge: Stable Plan - Discharge Summary Discharge Rx Participant: No New Discharge Prescriptions: New Pantoprazole [Protonix] 40 mg PO AC-BID #60 tab Zinc Sulfate [Orazinc] 220 mg PO DAILY #0 cap Continue metFORMIN HCL 1,000 mg PO AC-BID lisinopriL 40 mg PO DAILY Glimepiride [Amaryl] 2 mg PO AC-BRKFST Lovastatin [Mevacor] 40 mg PO HS Discharge Medication List Glimepiride [Amaryl] 2 mg PO AC-BRKFST 11/07/21 [History] Lovastatin [Mevacor] 40 mg PO HS 11/07/21 [History] lisinopriL 40 mg PO DAILY 11/07/21 [History] metFORMIN HCL 1,000 mg PO AC-BID 11/07/21 [History] Pantoprazole [Protonix] 40 mg PO AC-BID #60 tab 11/12/21 [Rx] Zinc Sulfate [Orazinc] 220 mg PO DAILY #0 cap 11/12/21 [Rx] Follow up Appointment(s)/Referral(s): Howie Kenney MD [STAFF PHYSICIAN] - 11/18/21 3:15 pm (Appointment will be @ [facility]. Please call office prior to your appointment if you are experiencing any COVID symptoms. Thank you) Rosa Camp MD [STAFF PHYSICIAN] - 12/01/21 2:00 pm [facility], [NON-STAFF] - 1 Week Patient Instructions/Handouts: COVID-19 (Coronavirus Disease 2019) (DC), COVID- 19: Slow the Coronavirus Spread (DC) Activity/Diet/Wound Care/Special Instructions: complete Quarantine Discharge Disposition: HOME WITH HOME HEALTH SERVICES
--- NOTE | 2021-11-18 10:42 | CDI ---
Documentation Clarification Form Date: 11/18/21 From: Liliana Robles Admit Date: 11/07/2021 02:07:00 PM Patient Name: Yadiel Fitch Visit Number: [id number] Discharge Date: 11/12/2021 12:22:00 PM ATTENTION: The Clinical Documentation Specialists (CDI) and [facility] Coding Staff appreciate your assistance in clarifying documentation. Please respond to the clarification below the line at the bottom and electronically sign. The CDI & [facility] Coding staff will review the response and follow-up if needed. Please note: Queries are made part of the Legal Health Record. If you have any questions, please contact the author of this message via ITS. Dr. Howie Kenney, Acute renal Failure is documented in the discharge summary. Additional clarification regarding the acuity of renal failure is requested. History/Risk Factors: COVID-19 with weakness, HLD, HTN, hiatal hernia, T2DM, urinary continence Clinical Indicators: This is an 81-year-old male who states about a week ago he was diagnosed with COVID. Patient states he got up today and his legs were really weak and he was having difficulty standing thought he might fall so he came to the emergency department. 11/09 PN documents incontinence. Patients baseline/prior BUN/CR/GFR: none available DOS 11/07, , 11/12 Current BUN: 17, 64, 32.4 Current Cr: 1.21, 1.25, 1.1 Current GFR: 55, 53, 61.8 Treatment: IV fluids Please clarify the acuity of renal failure, if known: [ ] Acute Renal Failure (specify cause if known) [ ] Acute renal insufficiency [ ] Unable to determine acute renal failure secondary to COVID MTDD
== END 2021-11-12 12:22 | disposition home health service (06) | DRG 177 ==
LOC: EC 10:07 → 4SSUR 14:07
PROVIDERS: ADMIT Family Medicine; ATTEND Family Medicine
PROC: 0DB98ZX Excision of Duodenum, Via Natural or Artificial Opening Endoscopic, Diagnostic (ICD-10-PCS; principal; 2021-11-11 10:55)
DX: U07.1 COVID-19 (principal); K25.4 Chronic or unspecified gastric ulcer with hemorrhage; N17.9 Acute kidney failure, unspecified; D62 Acute posthemorrhagic anemia; K26.9 Duodenal ulcer, unspecified as acute or chronic, without hemorrhage or perforation; E78.5 Hyperlipidemia, unspecified; E11.9 Type 2 diabetes mellitus without complications; I10 Essential (primary) hypertension; K44.9 Diaphragmatic hernia without obstruction or gangrene; R53.1 Weakness; R32 Unspecified urinary incontinence; Z79.84 Long term (current) use of oral hypoglycemic drugs; Z79.899 Other long term (current) drug therapy; Z90.81 Acquired absence of spleen; Z85.46 Personal history of malignant neoplasm of prostate
CPT/HCPCS: 36415; 43239; 71046; 80048; 80053; 81001; 83036; 83605; 85025; 85027; 87040; 87635; 88305; 88342; 93005; 94760; 96360; 96361; 99285

== ENCOUNTER 2024-06-11 13:43 | Inpatient (IN) | payer MEDICARE, BC ==
[2024-06-11 15:26] LABS: Basophils # (A) 0.17 10*3/uL (0.00-0.10); Basophils % (A) 1.2 %; Eosinophils # (A) 0.71 10*3/uL (0.04-0.35); Eosinophils % (A) 5.1 %; HCT 39.4 % (39.6-50.0); HGB 14.1 g/dL (13.0-17.0); Lymphocytes # (A) 3.65 10*3/uL (0.90-5.00); MCH 32.5 pg (27.0-32.0); MCHC 35.8 g/dL (32.0-37.0); MCV 90.8 fL (80.0-97.0); Mean Platelet Volume 8.6 fL (9.5-12.2); Monocytes # (A) 2.18 10*3/uL (0.20-1.00); Monocytes % (A) 15.5 %; Neutrophils # (A) 7.25 10*3/uL (1.80-7.70); Neutrophils % (A) 51.7 %; Platelet Count 666 10*3/uL (140-440); RBC 4.34 10*6/uL (4.40-5.60); RDW 12.3 % (11.5-14.5); WBC 14.03 10*3/uL (4.50-10.00)
[2024-06-11 15:42] LABS: ALT 25 U/L (4-49); AST 26 U/L (17-59); African American GFR (CKD) 73 (>60 ml/min/1.73 sqM); Albumin 4.2 g/dL (3.5-5.0); Alkaline Phosphatase 51 U/L (38-126); Anion Gap 8 mmol/L; Blood Urea Nitrogen 25 mg/dL (9-20); Calcium 10.1 mg/dL (8.4-10.2); Carbon Dioxide 26 mmol/L (22-30); Chloride 99 mmol/L (98-107); Glucose 259 mg/dL (74-99); Magnesium 1.7 mg/dL (1.6-2.3); Non-African American GFR(CKD) 64 (>60 ml/min/1.73 sqM); Potassium 5.1 mmol/L (3.5-5.1); Sodium 133 mmol/L (137-145); Total Bilirubin 0.7 mg/dL (0.2-1.3); Total Protein 7.9 g/dL (6.3-8.2)
--- NOTE | 2024-06-11 15:44 | ED ---
Weakness HPI - General Chief complaint: Weakness Stated complaint: Weakness Source: patient Mode of arrival: EMS Limitations: no limitations - History of Present Illness Initial comments: 83-year-old male with past medical history of diabetes, hypertension, hyperlipidemia who presents the emergency department with multiple falls. Daughter is at bedside and reports the history. States that the patient lives with her and ambulates with a walker however has been extremely weak. He has had difficulty ambulating with multiple falls. Last fall was on Easter. He den ies having any injuries and therefore was never evaluated for it. Daughter states that she works during the day. She is concerned that he is going to hurt himself with how weak he is. Patient states his symptoms feel similar to when he had COVID last time. He denies any head injuries. No neck pain. No chest pain or difficulty breathing. No other alleviating, precipitating or modifying factors - Related Data Home Medications Medication Instructions Recorded Confirmed Glimepiride [Amaryl] 2 mg PO AC-BRKFST 11/07/21 11/07/21 Lovastatin [Mevacor] 40 mg PO HS 11/07/21 11/07/21 lisinopriL 40 mg PO DAILY 11/07/21 11/07/21 metFORMIN HCL 1,000 mg PO AC-BID 11/07/21 11/07/21 Previous Rx's Medication Instructions Recorded Pantoprazole [Protonix] 40 mg PO AC-BID #60 tab 11/12/21 Zinc Sulfate [Orazinc] 220 mg PO DAILY #0 cap 11/12/21 Allergies Allergy/AdvReac Type Severity Reaction Status Date / Time No Known Allergies Allergy Verified 11/07/21 10:16 Review of Systems ROS Statement: Those systems with pertinent positive or pertinent negative responses have been documented in the HPI. ROS Other: All systems not noted in ROS Statement are negative. Past Medical History Past Medical History: Cancer, Diabetes Mellitus, Hyperlipidemia, Hypertension Additional Past Medical History / Comment(s): Prostate cancer 20 years ago History of Any Multi-Drug Resistant Organisms: None Reported Past Surgical History: Orthopedic Surgery Additional Past Surgical History / Comment(s): splenectomy, Left finger joint OA surgery Past Anesthesia/Blood Transfusion Reactions: No Reported Reaction Past Psychological History: Anxiety, Depression Smoking Status: Never smoker Past Alcohol Use History: Daily Past Drug Use History: None Reported General Exam Limitations: no limitations Course Vital Signs 06/11/24 06/11/24 06/11/24 13:46 14:30 15:30 Temperature 98 F Pulse Rate 96 88 81 Respiratory 16 16 15 Rate Blood Pressure 165/79 144/63 160/76 O2 Sat by Pulse 97 98 97 Oximetry Medical Decision Making - Medical Decision Making Was pt. sent in by a medical professional or institution ([facility], [facility], urgent care, hospital, or snf...) When possible be specific @ -[No] Did you speak to anyone other than the patient for history (EMS, parent, family, police, friend...)? What history was obtained from this source @ -[No] Did you review nursing and triage notes (agree or disagree)? Why? @ -[I reviewed and agree with nursing and triage notes] Were old charts reviewed (outside hosp., previous admission, EMS record, old EKG, old radiological studies, urgent care reports/EKG's, snf records)? Report findings @ -[No old charts were reviewed] Differential Diagnosis (chest pain, altered mental status, abdominal pain women, abdominal pain men, vaginal bleeding, weakness, fever, dyspnea, syncope, headache, dizziness, GI bleed, back pain, seizure, CVA, palpatations, mental health, musculoskeletal)? @ -[not applicable] EKG interpreted by me (3pts min.). @ -Yes and demonstrates sinus rhythm with a rate of 89. NC interval 154. QRS 86. QTc of 383. No acute ST segment elevations. Inverted T wave V2 through V6 X-rays interpreted by me (1pt min.). @ -[None done] CT interpreted by me (1pt min.). @ -[None done] U/S interpreted by me (1pt. min.). @ -[None done] What testing was considered but not performed or refused? (CT, X-rays, U/S, labs)? Why? @ -[None] What meds were considered but not given or refused? Why? @ -[None] Did you discuss the management of the patient with other professionals (professionals i.e. [facility], [facility], lab, RT, psych nurse, addiction social worker, semiconductor technician, teacher, rating officer, supervisor case loading)? Give summary @ -[No] Was smoking cessation discussed for >3mins.? @ -[No] Was critical care preformed (if so, how long)? @ -[No] Were there social determinants of health that impacted care today? How? (Homelessness, low income, unemployed, alcoholism, drug addiction, transportation, low edu. Level, literacy, decrease access to med. care, nursing home, rehab)? @ -[No] Was there de-escalation of care discussed even if they declined (Discuss DNR or withdrawal of care, Hospice)? DNR status @ -[No] What co-morbidities impacted this encounter? (DM, HTN, Smoking, COPD, CAD, Cancer, CVA, ARF, Chemo, Hep., AIDS, mental health diagnosis, sleep apnea, morbid obesity)? @ -[None] Was patient admitted / discharged? Hospital course, mention meds given and route, prescriptions, significant lab abnormalities, going to OR and other p ertinent info. @ -[hospital course] Undiagnosed new problem with uncertain prognosis? @ -[No] Drug Therapy requiring intensive monitoring for toxicity (Heparin, Nitro, Insulin, Cardizem)? @ -[No] Were any procedures done? @ -[No] Diagnosis/symptom? @ -[default] Acute, or Chronic, or Acute on Chronic? @ -[default] Uncomplicated (without systemic symptoms) or Complicated (systemic symptoms)? @ -[default] Side effects of treatment? @ -[No] Exacerbation, Progression, or Severe Exacerbation? @ -[No] Poses a threat to life or bodily function? How? (Chest pain, [place], [place], pneumonia, PE, COPD, DKA, ARF, appy, cholecystitis, CVA, Diverticulitis, Homicidal, Suicidal, threat to staff... and all critical care pts) @ -[No] - Lab Data Result diagrams: 06/11/24 15:15 06/11/24 15:15 Lab Results 06/11/24 06/11/24 06/11/24 Range/Units 15:15 15:15 15:15 WBC 14.03 H (4.50-10.00) 10*3/uL RBC 4.34 L (4.40-5.60) 10*6/uL Hgb 14.1 (13.0-17.0) g/dL Hct 39.4 L (39.6-50.0) % MCV 90.8 (80.0-97.0) fL MCH 32.5 H (27.0-32.0) pg MCHC 35.8 (32.0-37.0) g/dL Plt Count 666 H (140-440) 10*3/uL MPV 8.6 L (9.5-12.2) fL Immature Gran % (Auto) 0.5 % Neutrophils % 51.7 % Lymphocytes % 26.0 % Monocytes % 15.5 % Eosinophils % 5.1 % Basophils % 1.2 % Immature Gran # 0.07 H (0.00-0.04) 10*3/uL Neutrophils # 7.25 (1.80-7.70) 10*3/uL Lymphocytes # 3.65 (0.90-5.00) 10*3/uL Monocytes # 2.18 H (0.20-1.00) 10*3/uL Eosinophils # 0.71 H (0.04-0.35) 10*3/uL Basophils # 0.17 H (0.00-0.10) 10*3/uL PT 10.3 (10.0-12.5) sec INR 0.9 (<1.2) APTT 22.7 (22.0-30.0) sec Sodium 133 L (137-145) mmol/L Potassium 5.1 (3.5-5.1) mmol/L Chloride 99 (98-107) mmol/L Carbon Dioxide 26 (22-30) mmol/L Anion Gap 8 mmol/L BUN 25 H (9-20) mg/dL Creatinine 1.07 (0.66-1.25) mg/dL Est GFR (CKD-EPI)AfAm 73 (>60 ml/min/1.73 sqM) Est GFR (CKD-EPI)NonAf 64 (>60 ml/min/1.73 sqM) Glucose 259 H (74-99) mg/dL Plasma Lactic Acid Joni (0.7-2.0) mmol/L Calcium 10.1 (8.4-10.2) mg/dL Magnesium 1.7 (1.6-2.3) mg/dL Total Bilirubin 0.7 (0.2-1.3) mg/dL AST 26 (17-59) U/L ALT 25 (4-49) U/L Alkaline Phosphatase 51 (38-126) U/L Troponin I (0.000-0.034) ng/mL NT-Pro-B Natriuret Pep 176 pg/mL Total Protein 7.9 (6.3-8.2) g/dL Albumin 4.2 (3.5-5.0) g/dL 06/11/24 06/11/24 Range/Units 15:15 15:15 WBC (4.50-10.00) 10*3/uL RBC (4.40-5.60) 10*6/uL Hgb (13.0-17.0) g/dL Hct (39.6-50.0) % MCV (80.0-97.0) fL MCH (27.0-32.0) pg MCHC (32.0-37.0) g/dL Plt Count (140-440) 10*3/uL MPV (9.5-12.2) fL Immature Gran % (Auto) % Neutrophils % % Lymphocytes % % Monocytes % % Eosinophils % % Basophils % % Immature Gran # (0.00-0.04) 10*3/uL Neutrophils # (1.80-7.70) 10*3/uL Lymphocytes # (0.90-5.00) 10*3/uL Monocytes # (0.20-1.00) 10*3/uL Eosinophils # (0.04-0.35) 10*3/uL Basophils # (0.00-0.10) 10*3/uL PT (10.0-12.5) sec INR (<1.2) APTT (22.0-30.0) sec Sodium (137-145) mmol/L Potassium (3.5-5.1) mmol/L Chloride (98-107) mmol/L Carbon Dioxide (22-30) mmol/L Anion Gap mmol/L BUN (9-20) mg/dL Creatinine (0.66-1.25) mg/dL Est GFR (CKD-EPI)AfAm (>60 ml/min/1.73 sqM) Est GFR (CKD-EPI)NonAf (>60 ml/min/1.73 sqM) Glucose (74-99) mg/dL Plasma Lactic Acid Joni 1.2 (0.7-2.0) mmol/L Calcium (8.4-10.2) mg/dL Magnesium (1.6-2.3) mg/dL Total Bilirubin (0.2-1.3) mg/dL AST (17-59) U/L ALT (4-49) U/L Alkaline Phosphatase (38-126) U/L Troponin I <0.012 (0.000-0.034) ng/mL NT-Pro-B Natriuret Pep pg/mL Total Protein (6.3-8.2) g/dL Albumin (3.5-5.0) g/dL Disposition Clinical Impression: Generalized weakness, Leukocytosis Disposition: ADMITTED IP TO THIS HOSP Condition: Stable Is patient prescribed a controlled substance at d/c from ED?: No Referrals: Howie Kenney MD [Primary Care Provider] - 1-2 days Time of Disposition: 16:18 Decision to Admit Reason: Admit from EC Decision Date: 06/11/24 Decision Time: 16:18
--- NOTE | 2024-06-11 15:47 | XR ---
EXAMINATION TYPE: XR chest 2V DATE OF EXAM: 06/11/2024 3:25 PM COMPARISON: 11/07/2021 CLINICAL INDICATION: Male, 83 years old with history of Weakness; [facility] TECHNIQUE: XR chest 2V Frontal and lateral views of the chest. FINDINGS: Lungs/Pleura: There is no evidence of pleural effusion, focal consolidation, or pneumothorax. Pulmonary vascularity: Unremarkable. Heart/mediastinum: Cardiomediastinal silhouette is unremarkable. Musculoskeletal: No acute osseous pathology. Other findings: None IMPRESSION: No acute cardiopulmonary disease/process. [facility], , 06/11/2024 3:45 PM
[2024-06-11 15:50] LABS: NT-Pro-B-Type Natriuretic Pept 176 pg/mL
[2024-06-11 15:56] LABS: INR 0.9 (<1.2); Partial Thromboplastin Time 22.7 sec (22.0-30.0); Prothrombin Time 10.3 sec (10.0-12.5)
[2024-06-11] MEDS ORDERED: NALOXONE 0.4 MG/ML 1 ML VIAL IV PRN (16:18)
[2024-06-11] MEDS ORDERED: DEXTROSE 50% SYRINGE 50 ML IVP PRN ×2 (19:55)
[2024-06-11 20:59] LABS: Glucose,Whole Blood 257 mg/dL (70-110)
[2024-06-11] MEDS: hydrALAZINE HCL 50 MG TAB PO SCH (21:38)
[2024-06-11] MEDS: INSULIN LISPRO (HumaLOG) 100 UNIT/ML 10 mL VL SQ SCH (21:38)
[2024-06-11] MEDS: carvediloL 6.25 MG TAB PO SCH (21:38)
[2024-06-11 21:53] LABS: Appearance,Urine Clear (Clear); Bacteria,Urine Rare /hpf; Bilirubin,Urine Negative (Negative); Blood,Urine Negative (Negative); Color,Urine Light Yellow; Glucose,Urine (UA) 2+ (Negative); Hyaline Casts,Urine 5 /lpf (0-2); Ketones,Urine Negative (Negative); Leukocyte Esterase,Urine Small (Negative); Mucus,Urine Rare /hpf; Nitrite,Urine Negative (Negative); PH, Urine 5.5 (5.0-8.0); Protein,Urine Negative (Negative); RBC,Urine 1 /hpf (0-5); Specific Gravity,Urine 1.014 (1.001-1.035); Urobilinogen,Urine <2.0 mg/dL (<2.0); WBC,Urine 20 /hpf (0-5)
[2024-06-12 06:08] LABS: Glucose,Whole Blood 197 mg/dL (70-110)
[2024-06-12 08:32] LABS: HCT 38.7 % (39.6-50.0); HGB 13.2 g/dL (13.0-17.0); MCHC 34.1 g/dL (32.0-37.0); MCV 93.7 FL (80.0-97.0); Mean Platelet Volume 9.2 FL (9.5-12.2); NRBC Per 100 WBC 0 X 10*3/uL (0.00-0.01); Platelet Count 639 X 10*3/uL (140-440); RBC 4.13 X 10*6/uL (4.40-5.60); RDW 12.4 % (11.5-14.5); WBC 14.03 X 10*3/uL (4.50-10.00)
[2024-06-12 09:04] LABS: Carbon Dioxide 22.6 mmol/L (21.6-31.8); Chloride 100 mmol/L (96-109); Glucose 194 mg/dL (70-110); Potassium 4.6 mmol/L (3.5-5.5); Sodium 134 mmol/L (135-145)
[2024-06-12 09:05] LABS: BUN/Creat Ratio 18.42 Ratio (12.00-20.00); Blood Urea Nitrogen 22.1 mg/dL (9.0-27.0); Calcium 9.3 mg/dL (8.7-10.3)
[2024-06-12 09:40] LABS: Acanthocytes 2+ (None Seen); Basophils # (A) 0.17 X 10*3/uL (0.00-0.10); Basophils % (A) 1.2 %; Eosinophils # (A) 0.89 X 10*3/uL (0.04-0.35); Eosinophils % (A) 6.3 %; Lymphocytes # (A) 4.81 X 10*3/uL (0.90-5.00); Lymphocytes % (A) 34.3 %; Microcytosis (M) 2+ (None Seen); Monocytes # (A) 2.27 X 10*3/uL (0.20-1.00); Monocytes % (A) 16.2 %; Neutrophils # (A) 5.82 X 10*3/uL (1.80-7.70); Neutrophils % (A) 41.5 %
[2024-06-12] MEDS: PANTOPRAZOLE 40 MG TABLET PO SCH (10:22)
[2024-06-12] MEDS: busPIRone HCl 10 MG TAB PO SCH (10:22)
[2024-06-12] MEDS: VENLAFAXINE HCL ER 150 MG CAP PO SCH (10:22)
[2024-06-12 11:50] LABS: Glucose,Whole Blood 228 mg/dL (70-110)
--- NOTE | 2024-06-12 14:32 | P.HPIM ---
History of Present Illness H&P Date: 06/12/24 History of present illness; Patient is a 83-year-old male with past medical history of diabetes, hype rtension, hyperlipidemia who presents with multiple falls. Patient states that he lives with his daughter and has had 2 falls in the last month, last fall was on Easter. He denies having any injuries and therefore was never evaluated for it. He typically ambulates with wheelchair, and at times he can feel himself falling backwards before catching himself. He denies loss of consciousness. His daughter is concerned that he is going to hurt himself with how weak he is. He denies any head injuries and neck pain. No chest pain or difficulty breathing, dysphagia, dizziness, diaphoresis. Spoke with the ER physician, patient admission was accepted by internal medicine service for treatment. REVIEW OF SYSTEMS: Pertinent positives and negatives noted in HPI. PHYSICAL EXAMINATION: Vitals reviewed GENERAL: Resting comfortably in chair. EYES: PERRL, no scleral injection or icterus. No vision loss HENT: Normocephalic, atraumatic, hearing grossly intact, moist mucous membranes NECK: No tracheal deviation, full range of motion. CARDIOVASCULAR: S1 and S2 present. No murmurs, rubs, or gallops. PULMONARY: Chest is clear to auscultation, no wheezing, rhonchi, or crackles. ABDOMEN: Soft, nontender, nondistended. No palpable organomegaly. 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 EXTREMITIES: No apparent cyanosis, clubbing. No pedal edema. NEUROLOGICAL: Alert and oriented. Gross neurological examination with no apparent focal deficits. SKIN: No apparent rashes. ER FINDINGS: Labs significant for WBC 14.0, hemoglobin 14.1, platelets 666, sodium 133, BUN 25, creatinine 1.0, glucose 259, A1c 7.5, troponin<0.012, proBNP 176 urinalysis significant for glucose 2+, small leukocyte esterase, 5 hyaline casts, COVID- negative EKG independently interpreted showed sinus rhythm heart rate of 89, QTc 383, no ST segment elevation or depression seen, inverted T wave in V2 through V6 Chest x-ray done independently interpreted showed no acute cardiopulmonary process. Assessment and Plan: In summary, patient is a 83-year-old male with past medical history of diabetes, hypertension, hyperlipidemia who presents with multiple falls. #Recurrent falls #Prerenal azotemia #Leukocytosis, likely reactive -TSH pending -UA and chest x-ray unremarkable -Fall precautions - PT OT consulted, recommend subacute rehab #Diabetes mellitus, type 2 Holding oral medications Begin Accu-Cheks and low-dose sliding scale, monitor for hypoglycemia HbA1c 7.5 Chronic Medical Conditions #Essential hypertension # Anxiety depression Resume home medications DVT ppx: Subq Lovenox 40 meq daily Code status: Full code F: PO E: Replete as needed N: Heart healthy diet A: Ambulatory with walker Anticipated discharge [facility]: [facility] Anticipated discharge time: [address] Whitmore seen patient with resident, present during exam, and agreed with findings. Dictation was produced using [employer] dictation software. Please excuse any grammatical, word or spelling errors. Attestation I have seen and examined this patient with my resident , discussed the same with the resident/MARIAJOSE, and agree with the dictator's assessment and plan as written Dr. Brent whitmore Past Medical History Past Medical History: Cancer, Diabetes Mellitus, Hyperlipidemia, Hypertension Additional Past Medical History / Comment(s): Prostate cancer 20 years ago History of Any Multi-Drug Resistant Organisms: None Reported Past Surgical History: Orthopedic Surgery Additional Past Surgical History / Comment(s): splenectomy, Left finger joint OA surgery Past Anesthesia/Blood Transfusion Reactions: No Reported Reaction Past Psychological History: Anxiety, Depression Smoking Status: Never smoker Past Alcohol Use History: Daily Past Drug Use History: None Reported Medications and Allergies Home Medications Medication Instructions Recorded Confirmed Type Glimepiride [Amaryl] 2 mg PO DAILY 11/07/21 06/11/24 History Lovastatin [Mevacor] 40 mg PO HS 11/07/21 06/11/24 History Losartan/Hydrochlorothiazide 1 tab PO DAILY 06/11/24 06/11/24 History [Hyzaar 100-12.5 Tablet] Pantoprazole [Protonix] 40 mg PO DAILY 06/11/24 06/11/24 History Spironolactone [Aldactone] 100 mg PO DAILY 06/11/24 06/11/24 History Venlafaxine HCl [Effexor XR] 150 mg PO DAILY 06/11/24 06/11/24 History busPIRone HCL 10 mg PO BID 06/11/24 06/11/24 History carvediloL [Coreg] 6.25 mg PO BID-W/MEALS 06/11/24 06/11/24 History hydrALAZINE HCL [Apresoline] 50 mg PO BID 06/11/24 06/11/24 History metFORMIN HCL [Glucophage] 500 mg PO DAILY 06/11/24 06/11/24 History Allergies Allergy/AdvReac Type Severity Reaction Status Date / Time No Known Allergies Allergy Verified 06/11/24 16:37 Physical Exam Vitals: Vital Signs Temp Pulse Pulse Resp BP BP BP 06/12/24 07:49 88 18 06/12/24 07:11 98.5 F 88 18 168/79 06/12/24 05:55 88 158/79 06/12/24 01:19 98.5 F 90 18 147/79 06/11/24 19:03 98.2 F 90 19 162/79 06/11/24 17:43 97.9 F 93 18 156/85 06/11/24 15:30 81 15 160/76 06/11/24 14:30 88 16 144/63 06/11/24 13:46 98 F 96 16 165/79 Pulse Ox 06/12/24 07:49 06/12/24 07:11 95 06/12/24 05:55 06/12/24 01:19 96 06/11/24 19:03 97 06/11/24 17:43 97 06/11/24 15:30 97 06/11/24 14:30 98 06/11/24 13:46 97 Intake and Output 06/11/24 06/12/24 06/12/24 22:59 06:59 14:59 Output Total 250 Balance -250 Output: Urine 250 Other: # Voids 2 Weight 65.771 kg Results CBC & Chem 7: 06/13/24 03:40 06/13/24 03:40 Labs: Abnormal Lab Results - Last 24 Hours (Table) 06/11/24 06/11/24 06/11/24 Range/Units 15:15 15:15 20:45 WBC 14.03 H (4.50-10.00) 10*3/uL RBC 4.34 L (4.40-5.60) 10*6/uL Hct 39.4 L (39.6-50.0) % MCH 32.5 H (27.0-32.0) pg Plt Count 666 H (140-440) 10*3/uL MPV 8.6 L (9.5-12.2) fL Immature Gran # 0.07 H (0.00-0.04) 10*3/uL Monocytes # 2.18 H (0.20-1.00) 10*3/uL Eosinophils # 0.71 H (0.04-0.35) 10*3/uL Basophils # 0.17 H (0.00-0.10) 10*3/uL Sodium 133 L (137-145) mmol/L BUN 25 H (9-20) mg/dL Est GFR (CKD-EPI) (>=60) Glucose 259 H (74-99) mg/dL POC Glucose (mg/dL) (70-110) mg/dL Hemoglobin A1c (<=6.0) % Urine Glucose (UA) 2+ H (Negative) Ur Leukocyte Esterase Small H (Negative) Urine WBC 20 H (0-5) /hpf Urine Bacteria Rare H (None) /hpf Hyaline Casts 5 H (0-2) /lpf Urine Mucus Rare H (None) /hpf 06/11/24 06/12/24 06/12/24 Range/Units 20:57 03:24 03:24 WBC 14.03 H (4.50-10.00) 10*3/uL RBC 4.13 L (4.40-5.60) 10*6/uL Hct 38.7 L (39.6-50.0) % MCH (27.0-32.0) pg Plt Count 639 H (140-440) 10*3/uL MPV 9.2 L (9.5-12.2) fL Immature Gran # (0.00-0.04) 10*3/uL Monocytes # (0.20-1.00) 10*3/uL Eosinophils # (0.04-0.35) 10*3/uL Basophils # (0.00-0.10) 10*3/uL Sodium (137-145) mmol/L BUN (9-20) mg/dL Est GFR (CKD-EPI) (>=60) Glucose (74-99) mg/dL POC Glucose (mg/dL) 257 H (70-110) mg/dL Hemoglobin A1c 7.5 H (<=6.0) % Urine Glucose (UA) (Negative) Ur Leukocyte Esterase (Negative) Urine WBC (0-5) /hpf Urine Bacteria (None) /hpf Hyaline Casts (0-2) /lpf Urine Mucus (None) /hpf 06/12/24 06/12/24 Range/Units 03:24 06:06 WBC (4.50-10.00) 10*3/uL RBC (4.40-5.60) 10*6/uL Hct (39.6-50.0) % MCH (27.0-32.0) pg Plt Count (140-440) 10*3/uL MPV (9.5-12.2) fL Immature Gran # (0.00-0.04) 10*3/uL Monocytes # (0.20-1.00) 10*3/uL Eosinophils # (0.04-0.35) 10*3/uL Basophils # (0.00-0.10) 10*3/uL Sodium 134 L (137-145) mmol/L BUN (9-20) mg/dL Est GFR (CKD-EPI) 59 L (>=60) Glucose 194 H (74-99) mg/dL POC Glucose (mg/dL) 197 H (70-110) mg/dL Hemoglobin A1c (<=6.0) % Urine Glucose (UA) (Negative) Ur Leukocyte Esterase (Negative) Urine WBC (0-5) /hpf Urine Bacteria (None) /hpf Hyaline Casts (0-2) /lpf Urine Mucus (None) /hpf Thrombosis Risk Factor Assmnt - Choose All That Apply Any of the Below Risk Factors Present?: No Other Risk Factors: Yes Each Risk Factor Represents 3 Points: Age 75 years or older Thrombosis Risk Factor Assessment Total Risk Factor Score: 3 Thrombosis Risk Factor Assessment Level: Moderate Risk
[2024-06-12 16:53] LABS: Glucose,Whole Blood 196 mg/dL (70-110)
[2024-06-12 20:49] LABS: Glucose,Whole Blood 211 mg/dL (70-110)
[2024-06-12] MEDS: ATORVASTATIN 10 MG TAB PO SCH (21:20)
[2024-06-13 06:28] LABS: Glucose,Whole Blood 212 mg/dL (70-110)
[2024-06-13 08:07] LABS: BUN/Creat Ratio 17.31 Ratio (12.00-20.00); Blood Urea Nitrogen 22.5 mg/dL (9.0-27.0); Glucose 215 mg/dL (70-110)
[2024-06-13 08:08] LABS: Calcium 9.4 mg/dL (8.7-10.3); Carbon Dioxide 22.6 mmol/L (21.6-31.8); Chloride 101 mmol/L (96-109); HCT 37.6 % (39.6-50.0); HGB 12.9 g/dL (13.0-17.0); MCH 31.8 pg (27.0-32.0); MCHC 34.3 g/dL (32.0-37.0); MCV 92.6 FL (80.0-97.0); Mean Platelet Volume 9.2 FL (9.5-12.2); NRBC Per 100 WBC 0 X 10*3/uL (0.00-0.01); Platelet Count 632 X 10*3/uL (140-440); Potassium 4.5 mmol/L (3.5-5.5); RBC 4.06 X 10*6/uL (4.40-5.60); RDW 12.4 % (11.5-14.5); Sodium 136 mmol/L (135-145); WBC 18.07 X 10*3/uL (4.50-10.00)
[2024-06-13] MEDS: ENOXAPARIN 40 MG/0.4 ML SYRINGE SQ SCH (09:35)
--- NOTE | 2024-06-13 10:16 | P.PN ---
Subjective Progress Note Date: 06/13/24 History of present illness; Patient is a 83-year-old male with past medical history of diabetes, hypertensi on, hyperlipidemia who presents with multiple falls. Patient states that he lives with his daughter and has had 2 falls in the last month, last fall was on Easter. He denies having any injuries and therefore was never evaluated for it. He typically ambulates with wheelchair, and at times he can feel himself falling backwards before catching himself. He denies loss of consciousness. His daughter is concerned that he is going to hurt himself with how weak he is. He denies any head injuries and neck pain. No chest pain or difficulty breathing, dysphagia, dizziness, diaphoresis. 06/13. Patient seen and examined at bedside. No acute events overnight. Patient seen by PT OT who recommends MARTIN. Today's labs WBC 18, hemoglobin 12.9, glucose 215 PHYSICAL EXAMINATION: Vitals reviewed GENERAL: Resting comfortably in chair. CARDIOVASCULAR: S1 and S2 present. No murmurs, rubs, or gallops. PULMONARY: Chest is clear to auscultation, no wheezing, rhonchi, or crackles. ABDOMEN: Soft, nontender, nondistended. No palpable organomegaly. 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 EXTREMITIES: No apparent cyanosis, clubbing. No pedal edema. NEUROLOGICAL: Alert and oriented. Gross neurological examination with no apparent focal deficits. SKIN: No apparent rashes. Assessment and Plan: In summary, patient is a 83-year-old male with past medical history of diabetes, hypertension, hyperlipidemia who presents with multiple falls. #Recurrent falls #Prerenal azotemia #Leukocytosis, likely reactive Afebrile, asymptomatic -UA and chest x-ray unremarkable -Fall precautions - PT OT consulted, recommend subacute rehab #Diabetes mellitus, type 2 Holding oral medications Begin Accu-Cheks and low-dose sliding scale, monitor for hypoglycemia HbA1c 7.5 Chronic Medical Conditions #Essential hypertension # Anxiety depression Resume home medications DVT ppx: Subq Lovenox 40 meq daily Code status: Full code F: PO E: Replete as needed N: Heart healthy diet A: Ambulatory with walker Anticipated discharge place: [facility] Anticipated discharge time: Dr. Whitmore seen patient with resident, present during exam, and agreed with findings. Dictation was produced using [employer] dictation software. Please excuse any grammatical, word or spelling errors. Objective - Vital Signs Vital signs: Vital Signs Temp 98.1 F 06/13/24 06:48 Pulse 91 06/13/24 06:48 Resp 18 06/13/24 06:48 BP 181/82 06/13/24 06:48 Pulse Ox 96 06/13/24 06:48 FiO2 Intake & Output 06/12/24 06/13/24 06/13/24 18:59 06:59 18:59 Other: Voiding Method Toilet Urinal # Voids 1 1 - Labs CBC & Chem 7: 06/13/24 03:40 06/13/24 03:40 Labs: Abnormal Lab Results - Last 24 Hours (Table) 06/12/24 06/12/24 06/12/24 Range/Units 03:24 03:24 11:48 WBC (4.50-10.00) X 10*3/uL RBC (4.40-5.60) X 10*6/uL Hgb (13.0-17.0) g/dL Hct (39.6-50.0) % Plt Count (140-440) X 10*3/uL MPV (9.5-12.2) FL Immature Gran # 0.07 H (0.00-0.04) X 10*3/uL Monocytes # 2.27 H (0.20-1.00) X 10*3/uL Eosinophils # 0.89 H (0.04-0.35) X 10*3/uL Basophils # 0.17 H (0.00-0.10) X 10*3/uL Microcytosis (manual) 2+ A (None Seen) Acanthocytes (Spur) 2+ A (None Seen) Sodium 134 L (135-145) mmol/L Anion Gap (4.00-12.00) mmol/L Est GFR (CKD-EPI) 59 L (>=60) Glucose 194 H (70-110) mg/dL POC Glucose (mg/dL) 228 H (70-110) mg/dL 06/12/24 06/12/24 06/13/24 Range/Units 16:51 20:46 03:40 WBC 18.07 H (4.50-10.00) X 10*3/uL RBC 4.06 L (4.40-5.60) X 10*6/uL Hgb 12.9 L (13.0-17.0) g/dL Hct 37.6 L (39.6-50.0) % Plt Count 632 H (140-440) X 10*3/uL MPV 9.2 L (9.5-12.2) FL Immature Gran # (0.00-0.04) X 10*3/uL Monocytes # (0.20-1.00) X 10*3/uL Eosinophils # (0.04-0.35) X 10*3/uL Basophils # (0.00-0.10) X 10*3/uL Microcytosis (manual) (None Seen) Acanthocytes (Spur) (None Seen) Sodium (135-145) mmol/L Anion Gap (4.00-12.00) mmol/L Est GFR (CKD-EPI) (>=60) Glucose (70-110) mg/dL POC Glucose (mg/dL) 196 H 211 H (70-110) mg/dL 06/13/24 06/13/24 Range/Units 03:40 06:26 WBC (4.50-10.00) X 10*3/uL RBC (4.40-5.60) X 10*6/uL Hgb (13.0-17.0) g/dL Hct (39.6-50.0) % Plt Count (140-440) X 10*3/uL MPV (9.5-12.2) FL Immature Gran # (0.00-0.04) X 10*3/uL Monocytes # (0.20-1.00) X 10*3/uL Eosinophils # (0.04-0.35) X 10*3/uL Basophils # (0.00-0.10) X 10*3/uL Microcytosis (manual) (None Seen) Acanthocytes (Spur) (None Seen) Sodium (135-145) mmol/L Anion Gap 12.40 H (4.00-12.00) mmol/L Est GFR (CKD-EPI) 54 L (>=60) Glucose 215 H (70-110) mg/dL POC Glucose (mg/dL) 212 H (70-110) mg/dL
[2024-06-13 11:39] LABS: Glucose,Whole Blood 346 mg/dL (70-110)
[2024-06-13 16:52] LABS: Glucose,Whole Blood 217 mg/dL (70-110)
[2024-06-13 20:38] LABS: Glucose,Whole Blood 150 mg/dL (70-110)
[2024-06-14 06:10] LABS: Glucose,Whole Blood 189 mg/dL (70-110)
[2024-06-14 08:12] LABS: HCT 37.1 % (39.6-50.0); HGB 12.9 g/dL (13.0-17.0); MCH 31.6 pg (27.0-32.0); MCHC 34.8 g/dL (32.0-37.0); MCV 90.9 FL (80.0-97.0); Mean Platelet Volume 9.4 FL (9.5-12.2); NRBC Per 100 WBC 0 X 10*3/uL (0.00-0.01); Platelet Count 681 X 10*3/uL (140-440); RBC 4.08 X 10*6/uL (4.40-5.60); RDW 12.5 % (11.5-14.5); WBC 15.03 X 10*3/uL (4.50-10.00)
[2024-06-14 08:28] LABS: BUN/Creat Ratio 18.77 Ratio (12.00-20.00); Blood Urea Nitrogen 24.4 mg/dL (9.0-27.0); Calcium 9.4 mg/dL (8.7-10.3); Carbon Dioxide 21.8 mmol/L (21.6-31.8); Chloride 101 mmol/L (96-109); Glucose 179 mg/dL (70-110); Potassium 4.2 mmol/L (3.5-5.5); Sodium 135 mmol/L (135-145)
[2024-06-14 10:16] LABS: Glucose,Whole Blood 309 mg/dL (70-110)
--- NOTE | 2024-06-14 11:57 | CDI ---
Documentation Clarification Form Date: 06/14/2024 11:08:29 AM From: Elvie Hurley RN CCDS Phone: [phone] Admit Date: 06/12/2024 09:43:00 AM Patient Name: Yadiel Fitch Visit Number: [id number] Discharge Date: ATTENTION: The Clinical Documentation Specialists (CDI) and [facility] Coding Staff appreciate your assistance in clarifying documentation. Please respond to the clarification below the line at the bottom and electronically sign. The CDI & [facility] Coding staff will review the response and follow-up if needed. Please note: Queries are made part of the Legal Health Record. If you have any questions, please contact the author of this message via ITS. Doctor: Tatyana, There is documentation of recurrent falls and weakness in the HP, 06/12. Additional clarification is requested. History/Risk Factors: 83 year old male presents to the ED for multiple falls and weakness. Medical History: DM2, Prostate CA, HTN and HLD. 06/12 HP. Clinical Indicators: Occupational Therapy Consult, 06/13: Medical Information: Patient ambulates with a two wheeled walker in the home seeing and needs assistance with ADL completion. Assessment: Small shuffled steps, needed cues to take large steps. Decreased endurance and limited range of motion. Patient has challenges with Basic ADLs, IADLs, Bathing, Bed Mobility, Toileting, Toilet/Shower Transfer, Basic Transfers, Standing Balance, and Functional Mobility. The patient is high risk for falls related to difficulty with transfers, requires verbal / physical cues, home alone during day, and requires assist for all ADL AND IADLs. Physical Therapy Consult, 06/12: Patient presents with reduction in standing balance and protective reactions in stance with alteration in gait speed and step length. Small stutter steps noted with post list at times that patient can initially correct with cues, but returns to prior elliot. Anticipate benefit for post-acute rehab placement due to high fall risk and repeated fall episodes in home setting. Treatment: Physical Therapy, Occupational Therapy, Fall Precautions Can you please clarify weakness and recurrent falls? [ ] Age Related Debility [ ] Other, please specify [ ] Unable to determine Documented in the DCS: 06/15 Dr Joe : Recurrent falls , age related debility (Template Last Revised: April 2020) MTDD
--- NOTE | 2024-06-14 13:15 | P.PN ---
Subjective Progress Note Date: 06/14/24 History of present illness; Patient is a 83-year-old male with past medical history of diabetes, hypertensi on, hyperlipidemia who presents with multiple falls. Patient states that he lives with his daughter and has had 2 falls in the last month, last fall was on Easter. He denies having any injuries and therefore was never evaluated for it. He typically ambulates with wheelchair, and at times he can feel himself falling backwards before catching himself. He denies loss of consciousness. His daughter is concerned that he is going to hurt himself with how weak he is. He denies any head injuries and neck pain. No chest pain or difficulty breathing, dysphagia, dizziness, diaphoresis. 06/13. Patient seen and examined at bedside. No acute events overnight. Patient seen by PT OT who recommends MARTIN. Today's labs WBC 18, hemoglobin 12.9, glucose 215 06/14. Patient seen and examined at bedside. No acute events overnight. Patient awaiting placement to [facility]. Today's labs WBC 15.0, hemoglobin 12.9, glucose 179. PHYSICAL EXAMINATION: Vitals reviewed GENERAL: Resting comfortably in chair. CARDIOVASCULAR: S1 and S2 present. No murmurs, rubs, or gallops. PULMONARY: Chest is clear to auscultation, no wheezing, rhonchi, or crackles. ABDOMEN: Soft, nontender, nondistended. No palpable organomegaly. 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 EXTREMITIES: No apparent cyanosis, clubbing. No pedal edema. NEUROLOGICAL: Alert and oriented. Gross neurological examination with no apparent focal deficits. SKIN: No apparent rashes. Assessment and Plan: In summary, patient is a 83-year-old male with past medical history of diabetes, hypertension, hyperlipidemia who presents with multiple falls. #Recurrent falls, age related debility #Prerenal azotemia, resolved #Leukocytosis, likely reactive Afebrile, asymptomatic -UA and chest x-ray unremarkable -Fall precautions - PT OT consulted, recommend subacute rehab #Diabetes mellitus, type 2 Holding oral medications Begin Accu-Cheks and low-dose sliding scale, monitor for hypoglycemia HbA1c 7.5 Chronic Medical Conditions #Essential hypertension # Anxiety depression Resume home medications DVT ppx: Subq Lovenox 40 meq daily Code status: Full code F: PO E: Replete as needed N: Heart healthy diet A: Ambulatory with walker Anticipated discharge place: [facility] Anticipated discharge time: Tomorrow Dr. Joe seen patient with resident, present during exam, and agreed with findings. Dictation was produced using [employer] dictation software. Please excuse any grammatical, word or spelling errors. Objective - Vital Signs Vital signs: Vital Signs Temp 98.3 F 06/14/24 07:08 Pulse 86 06/14/24 07:08 Resp 18 06/14/24 07:08 BP 165/66 06/14/24 07:08 Pulse Ox 96 06/14/24 07:08 FiO2 Intake & Output 06/13/24 06/14/24 06/14/24 18:59 06:59 18:59 Other: Voiding Method Toilet Urinal Diaper # Voids 3 1 # Bowel Movements 0 - Labs CBC & Chem 7: 06/14/24 03:41 06/14/24 03:41 Labs: Abnormal Lab Results - Last 24 Hours (Table) 06/13/24 06/13/24 06/13/24 Range/Units 11:32 16:50 20:36 WBC (4.50-10.00) X 10*3/uL RBC (4.40-5.60) X 10*6/uL Hgb (13.0-17.0) g/dL Hct (39.6-50.0) % Plt Count (140-440) X 10*3/uL MPV (9.5-12.2) FL Anion Gap (4.00-12.00) mmol/L Est GFR (CKD-EPI) (>=60) Glucose (70-110) mg/dL POC Glucose (mg/dL) 346 H 217 H 150 H (70-110) mg/dL 06/14/24 06/14/24 06/14/24 Range/Units 03:41 03:41 06:08 WBC 15.03 H (4.50-10.00) X 10*3/uL RBC 4.08 L (4.40-5.60) X 10*6/uL Hgb 12.9 L (13.0-17.0) g/dL Hct 37.1 L (39.6-50.0) % Plt Count 681 H (140-440) X 10*3/uL MPV 9.4 L (9.5-12.2) FL Anion Gap 12.20 H (4.00-12.00) mmol/L Est GFR (CKD-EPI) 54 L (>=60) Glucose 179 H (70-110) mg/dL POC Glucose (mg/dL) 189 H (70-110) mg/dL
[2024-06-14 16:39] LABS: Glucose,Whole Blood 221 mg/dL (70-110)
[2024-06-14 20:38] LABS: Glucose,Whole Blood 262 mg/dL (70-110)
[2024-06-15 06:26] LABS: Glucose,Whole Blood 226 mg/dL (70-110)
[2024-06-15 08:13] VITALS: BP 146/79; PULSE 85; RESP 18; TEMP 97.6
[2024-06-15 08:43] LABS: BUN/Creat Ratio 18.93 Ratio (12.00-20.00); Blood Urea Nitrogen 26.5 mg/dL (9.0-27.0); Carbon Dioxide 22.1 mmol/L (21.6-31.8); Chloride 101 mmol/L (96-109); Glucose 218 mg/dL (70-110); Potassium 4.5 mmol/L (3.5-5.5); Sodium 136 mmol/L (135-145)
[2024-06-15 08:44] LABS: MCH 32.3 pg (27.0-32.0); MCHC 34.2 g/dL (32.0-37.0); MCV 94.3 FL (80.0-97.0); Mean Platelet Volume 9.2 FL (9.5-12.2); NRBC Per 100 WBC 0 X 10*3/uL (0.00-0.01); Platelet Count 606 X 10*3/uL (140-440); RBC 4.03 X 10*6/uL (4.40-5.60); RDW 12.4 % (11.5-14.5); WBC 14.79 X 10*3/uL (4.50-10.00)
--- NOTE | 2024-06-15 11:17 | P.DS ---
Providers Date of admission: 06/12/24 09:43 Expected date of discharge: 06/15/24 Attending physician: Brent Whitmore MD Primary care physician: Howie Kenney MD Hospital Course: Discharge diagnoses; #Recurrent falls, age related debility #Prerenal azotemia, resolved #Leukocytosis, reactive #Diabetes mellitus, type 2 #Essential hypertension # Anxiety depression Hospital course; History of present illness; Patient is a 83-year-old male with past medical history of diabetes, hypertension, hyperlipidemia who presents with multiple falls. Patient states that he lives with his daughter and has had 2 falls in the last month, last fall was on Easter. He denies having any injuries and therefore was never evaluated for it. He typically ambulates with wheelchair, and at times he can feel himself falling backwards before catching himself. He denies loss of consciousness. His daughter is concerned that he is going to hurt himself with how weak he is. He denies any head injuries and neck pain. No chest pain or difficulty breathing, dysphagia, dizziness, diaphoresis. Patient is discharged to rehab facility in stable condition. No new medications at this time, continue home medications. Will need to follow-up with his PCP. PHYSICAL EXAMINATION: Vitals reviewed GENERAL: Resting comfortably in chair. CARDIOVASCULAR: S1 and S2 present. No murmurs, rubs, or gallops. PULMONARY: Chest is clear to auscultation, no wheezing, rhonchi, or crackles. ABDOMEN: Soft, nontender, nondistended. No palpable organomegaly. 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 EXTREMITIES: No apparent cyanosis, clubbing. No pedal edema. NEUROLOGICAL: Alert and oriented. Gross neurological examination with no apparent focal deficits. SKIN: No apparent rashes. Attending physician seen patient with resident, present during exam, and agreed with findings. Dictation was produced using [employer] dictation software. please excuse any grammatical, word or spelling errors. Patient Condition at Discharge: Stable Plan - Discharge Summary Discharge Rx Participant: Yes New Discharge Prescriptions: Continue Glimepiride [Amaryl] 2 mg PO DAILY hydrALAZINE HCL [Apresoline] 50 mg PO BID carvediloL [Coreg] 6.25 mg PO BID-W/MEALS busPIRone HCL 10 mg PO BID Losartan/Hydrochlorothiazide [Hyzaar 100-12.5 Tablet] 1 tab PO DAILY metFORMIN HCL [Glucophage] 500 mg PO DAILY Lovastatin [Mevacor] 40 mg PO HS Spironolactone [Aldactone] 100 mg PO DAILY Pantoprazole [Protonix] 40 mg PO DAILY Venlafaxine HCl [Effexor XR] 150 mg PO DAILY Discharge Medication List Glimepiride [Amaryl] 2 mg PO DAILY 11/07/21 [History] Lovastatin [Mevacor] 40 mg PO HS 11/07/21 [History] Losartan/Hydrochlorothiazide [Hyzaar 100-12.5 Tablet] 1 tab PO DAILY 06/11/24 [History] Pantoprazole [Protonix] 40 mg PO DAILY 06/11/24 [History] Spironolactone [Aldactone] 100 mg PO DAILY 06/11/24 [History] Venlafaxine HCl [Effexor XR] 150 mg PO DAILY 06/11/24 [History] busPIRone HCL 10 mg PO BID 06/11/24 [History] carvediloL [Coreg] 6.25 mg PO BID-W/MEALS 06/11/24 [History] hydrALAZINE HCL [Apresoline] 50 mg PO BID 06/11/24 [History] metFORMIN HCL [Glucophage] 500 mg PO DAILY 06/11/24 [History] Follow up Appointment(s)/Referral(s): Howie Kenney MD [Primary Care Provider] - 1-2 days
[2024-06-15 11:18] LABS: Glucose,Whole Blood 316 mg/dL (70-110)
== END 2024-06-15 15:13 | DRG 884 ==
LOC: EC 13:43 → 4SSUR 16:18 → OBSVTOIN 06-12 09:43
PROVIDERS: ADMIT Internal Medicine; ATTEND Internal Medicine
DX: R54 Age-related physical debility (principal); D72.829 Elevated white blood cell count, unspecified; E11.9 Type 2 diabetes mellitus without complications; E78.5 Hyperlipidemia, unspecified; F32.A Depression, unspecified; I10 Essential (primary) hypertension; R29.6 Repeated falls; R79.89 Other specified abnormal findings of blood chemistry; F41.9 Anxiety disorder, unspecified; W19.XXXA Unspecified fall, initial encounter; Z79.84 Long term (current) use of oral hypoglycemic drugs; Z79.899 Other long term (current) drug therapy; Z85.46 Personal history of malignant neoplasm of prostate; Z86.16 Personal history of COVID-19; Z90.81 Acquired absence of spleen; Z99.3 Dependence on wheelchair; Y92.099 Unspecified place in other non-institutional residence as the place of occurrence of the external cause
CPT/HCPCS: 36415; 71046; 80048; 80053; 81001; 83036; 83605; 83735; 83880; 84443; 84484; 85025; 85027; 85610; 85730; 87635; 93005; 99285